=== PATIENT | female | born 1985 | race Two or more races ===

== ENCOUNTER 2020-03-24 20:45 | Emergency (ER) | payer MEDICARE, OTHER ==
[~2020-03-24] VITALS: Ht 157.5 cm; Wt 59.0 kg
[2020-03-24 21:27] LABS: BASOPHILS # (AUTO) 0.1 /CMM (0.0-0.2); BASOPHILS % (AUTO) 0.5 % (0.0-2.0); EOSINOPHILS % (AUTO) 0.4 % (0.0-6.0); HEMATOCRIT 37 % (39-51); HEMOGLOBIN 12.1 g/dL (13.5-17.5); LYMPHOCYTES # (AUTO) 1.7 /CMM (0.8-4.8); LYMPHOCYTES % (AUTO) 16.1 % (20.0-44.0); MEAN CORPUSCULAR HGB CONC 33 g/dl (31.0-36.0); MEAN CORPUSCULAR VOLUME 87 fL (80-96); MONOCYTES # (AUTO) 0.5 /CMM (0.1-1.30); MONOCYTES % (AUTO) 4.5 % (2.0-12.0); NEUTROPHILS # (AUTO) 8.4 /CMM (1.8-8.9); NEUTROPHILS % (AUTO) 78.5 % (43.0-81.0); PLATELET COUNT (AUTO) 241 /CMM (150-450); RED BLOOD CELL COUNT(AUTO) 4.25 MIL/uL (4.5-6.0); WHITE BLOOD COUNT (AUTO) 10.7 K/uL (4.3-11.0)
--- NOTE | 2020-03-24 21:27 | NUR ---
BIBRA AND [employer] FOR SI. PT'S DADD CALLED 911 FOR SMOKING FENTANYL. PT REPORTED SHE'S USING FENTANYL FOR "RELIEF" AND SI. PT CURRENTLY A, OX4. BREATHING EVENLY. NO DISTRESS NOTED. PT WAS PLACED IN BED 13. SI PRECAUTION IN PLACE AND PT REMAINED UNDER CLOSE SUPERVISION OF A SITTER. WILL CONT TO MONITOR
[2020-03-24 21:34] LABS: CARBON DIOXIDE 28 mmol/L (21-32); CHLORIDE 103 mmol/L (98-107); CREATININE 0.9 mg/dL (0.6-1.3); GLUCOSE 100 mg/dL (74-106); POTASSIUM 3.7 mmol/L (3.5-5.1); SODIUM SERUM 137 mmol/L (136-145); UREA NITROGEN, BLOOD 10 mg/dL (7-18)
[2020-03-24 21:40] LABS: ALANINE AMINOTRANSFERASE 19 U/L (12-78); ALBUMIN 3.8 g/dL (3.4-5.0); ALCOHOL, BLOOD < 3 mg/dL (0-0); ALKALINE PHOSPHATASE 43 U/L (46-116); ASPARTATE AMINOTRANSFERASE 16 U/L (15-37); BILIRUBIN,DIRECT 0.2 mg/dL (0.0-0.2); BILIRUBIN,TOTAL 0.6 mg/dL (0.2-1.0)
[2020-03-24 21:42] LABS: ACETAMINOPHEN < 10 ug/ml (10-30); SALICYLATE < 2.8 mg/dL (2.8-20.0)
[2020-03-24 21:55] LABS: APPEARANCE,URINE Clear (CLEAR); BILIRUBIN,URINE Negative (NEGATIVE); BLOOD, URINE Negative Ery/uL (NEGATIVE); COLOR,URINE Yellow (YELLOW); KETONES,URINE 40 (NEGATIVE); LEUKOCYTE ESTERASE ,URINE Small (NEGATIVE); NITRITE, URINE Negative (NEGATIVE); PROTEIN,URINE Negative (NEGATIVE); UGLUCOSE Negative (NEGATIVE); UROBILINOGEN,URINE 0.2 EU/dL (0.2)
[2020-03-24 22:05] LABS: BACTERIA,URINE 1+ /HPF (None Seen); RBC,URINE NONE SEEN /HPF (0-2); SQUAMOUS EPITHELIAL CELL,UR Few /HPF (None Seen)
[2020-03-24] MEDS ORDERED: CEPHALEXIN MONOHYDRATE 500 MG CAPSULE PO ONE ×2 (23:00→23:50)
--- NOTE | 2020-03-24 23:47 | NUR ---
ART FROM CRISIS TEAM AT THE BED SIDE
[2020-03-25 00:37] VITALS: BP 110/80
== END 2020-03-25 00:37 | disposition home or self-care (01) ==
LOC: ER 20:49 → EDSEX 20:49 → ER 03-25 00:37
DX: R45.851 Suicidal ideations (principal); F11.10 Opioid abuse, uncomplicated; N39.0 Urinary tract infection, site not specified; F32.9 Major depressive disorder, single episode, unspecified; F41.9 Anxiety disorder, unspecified; E03.9 Hypothyroidism, unspecified
CPT/HCPCS: 36415; 80048; 80076; 80305; 80307; 80329; 81001; 84703; 85025; 87086; 99285; G0480; 81000-TC

== ENCOUNTER 2021-06-07 22:31 | Inpatient (IN) | payer MEDICARE, OTHER ==
[~2021-06-07] VITALS: Ht 157.5 cm; Wt 71.9 kg
--- NOTE | 2021-06-07 22:40 | NUR ---
PT BIBRA 102 FROM HER APARTMENT FOR POSSIBLE OVERDOSE ON FENTANYL AND XANAX/ PLACED IN BED 9 ON CARDAC MONITOR AND PULSE OX. ER MD AT BEDSIDE FOR EVAL. AWATING ORDERS.
[2021-06-07] MEDS ORDERED: NALOXONE PREFILLED SYRINGE 2 MG/2 ML SYRINGE ONE ×2 (22:47→23:38)
[2021-06-07] MEDS ORDERED: IV NS 0.9% 1,000 ML BAG IV ONE (23:00)
[2021-06-07] MEDS ORDERED: NALOXONE PREFILLED SYRINGE 2 MG/2 ML SYRINGE IV ONE (23:00)
--- NOTE | 2021-06-07 23:00 | NUR ---
NARCAN 2MG GIVEN PER MD ORDER. PT A&OX1 ABLE TO STATE WHAT SHE INGESTED.
--- NOTE | 2021-06-07 23:05 | NUR ---
URINE COLLECTED AND SENT TO LAB
--- NOTE | 2021-06-07 23:07 | NUR ---
SCHOOL ATTENDANCE SECRETARY @ BEDSIDE COLLECTING BLOOD.
[2021-06-07 23:14] LABS: BILIRUBIN,URINE SMALL (NEGATIVE); COLOR,URINE DARK YELLOW (YELLOW); LEUKOCYTE ESTERASE ,URINE Negative (NEGATIVE); NITRITE, URINE Negative (NEGATIVE); PH,URINE 5.5 (5.0-8.0); PROTEIN,URINE >=300 mg/dl (NEGATIVE); UGLUCOSE Negative (NEGATIVE); UROBILINOGEN,URINE 0.2 EU/dL (0.2)
[2021-06-07 23:17] LABS: BASOPHILS % (AUTO) 0.2 % (0.0-2.0); EOSINOPHILS % (AUTO) 0.2 % (0.0-6.0); HEMATOCRIT 58 % (33-45); HEMOGLOBIN 18.7 g/dL (11.5-14.8); LYMPHOCYTES # (AUTO) 0.8 K/uL (0.8-4.8); LYMPHOCYTES % (AUTO) 4.2 % (20.0-44.0); MEAN CORPUSCULAR HGB CONC 33 g/dl (31.0-36.0); MEAN CORPUSCULAR VOLUME 86 fL (82-100); MONOCYTES # (AUTO) 0.5 K/uL (0.1-1.30); MONOCYTES % (AUTO) 2.8 % (2.0-12.0); NEUTROPHILS # (AUTO) 17.1 K/uL (1.8-8.9); NEUTROPHILS % (AUTO) 92.6 % (43.0-81.0); PLATELET COUNT (AUTO) 381 K/uL (150-450); RED BLOOD CELL COUNT(AUTO) 6.68 MIL/uL (4.0-5.2); WHITE BLOOD COUNT (AUTO) 18.5 K/uL (4.3-11.0)
--- NOTE | 2021-06-07 23:22 | NUR ---
covid swab done and sent to lab
[2021-06-07 23:28] LABS: ALKALINE PHOSPHATASE 110 U/L (46-116); BILIRUBIN,DIRECT 0.2 mg/dL (0.0-0.2); BILIRUBIN,TOTAL 0.7 mg/dL (0.2-1.0); CARBON DIOXIDE 18 mmol/L (21-32); CHLORIDE 94 mmol/L (98-107); CREATININE 3.9 mg/dL (0.6-1.3); GLUCOSE 150 mg/dL (74-106); SODIUM SERUM 132 mmol/L (136-145); TOTAL PROTEIN, SERUM 8.9 g/dL (6.4-8.2); UREA NITROGEN, BLOOD 42 mg/dL (7-18)
--- NOTE | 2021-06-07 23:30 | NUR ---
BS TAKEN: 142 MD NOTIFIED
[2021-06-07 23:33] LABS: ACETAMINOPHEN 0 ug/ml (10-30); ALCOHOL, BLOOD < 3 mg/dL (0-0)
[2021-06-07 23:35] LABS: POTASSIUM 6.8 mmol/L (3.5-5.1)
--- NOTE | 2021-06-07 23:35 | NUR ---
RECIEVED STAT LAB K+ 6.8 NOTIFIED
[2021-06-07] MEDS ORDERED: INSULIN REGULAR, HUMAN 100 UNIT/ML 10 ML VIAL ONE (23:45)
[2021-06-07] MEDS ORDERED: SODIUM BICARBONATE SYR 50 MEQ/50 ML DISP.SYRIN ONE (23:45)
[2021-06-07] MEDS ORDERED: CALCIUM CHLORIDE 1,000 MG/10 ML DISP.SYRIN ONE (23:45)
[2021-06-07] MEDS ORDERED: DEXTROSE 50%-WATER 50 ML DISP.SYRIN ONE (23:45)
[2021-06-07 23:49] LABS: BAND % (MANUAL) 5 % (0.0-5.0); LYMPHOCYTES % (MANUAL) 4 % (16-48); MONOCYTES % (MANUAL) 3 % (0-11.0); NEUTROPHILS % (MANUAL) 88 (42-76)
[2021-06-07] MEDS ORDERED: ALBUTEROL FS 2.5 MG/3 ML VIAL.NEB ONE (23:51)
[2021-06-08] VITALS (76 sets, daily range): BP systolic 73–163; BP diastolic 36–127
[2021-06-08] MEDS ORDERED: CALCIUM CHLORIDE 1,000 MG/10 ML DISP.SYRIN IV ONE
[2021-06-08] MEDS ORDERED: ALBUTEROL FS 2.5 MG/3 ML VIAL.NEB NEB ONE
[2021-06-08] MEDS ORDERED: SODIUM BICARBONATE SYR 50 MEQ/50 ML DISP.SYRIN IV ONE
[2021-06-08] MEDS ORDERED: DEXTROSE 50%-WATER 50 ML DISP.SYRIN IV ONE
[2021-06-08] MEDS ORDERED: NALOXONE PREFILLED SYRINGE 2 MG/2 ML SYRINGE IV ONE
--- NOTE | 2021-06-08 00:01 | NUR ---
RECTAL TEMP TAKEN 86.6 PER MD ORDER TO WARM PATIENT WITH WARM BLANKETS AND BEAR HUGGER
--- NOTE | 2021-06-08 00:15 | NUR ---
RT AND MD @ BEDSIDE GETTING ABG.
--- NOTE | 2021-06-08 00:18 | NUR ---
TEMP RECHECK 88.8 MD AWARE.
[2021-06-08 00:26] LABS: ABG BASE EXCESS -12.4 mmol/L; ABG OXYGEN SATURATION 98.9 % (92.0-98.5); ABG PCO2 41.4 mmHg (35.0-45.0); ABG PH 7.186 (7.350-7.450); ABG PO2 321.4 mmHg (75.0-100.0); AaDO2 25.9 mmHg; COHb 0.3 % (0.5-1.5); MetHb 0.6 % (0.0-1.5); SITE, ABG Left Radial
[2021-06-08] MEDS ORDERED: IV NS 0.9% 1,000 ML BAG IV ONE (00:30)
[2021-06-08] MEDS ORDERED: PROPOFOL 100 ML ONE (00:37)
--- NOTE | 2021-06-08 00:40 | NUR ---
RT notes Pt was orally intubated by ER . With 7.0 ETT secure at 23 cm at the lip line. ETT patent and secured. C02 detector color change noted, mist on tube is noted, equal chest rise noted. Pt placed on [facility] vent. on MD ordered settings AC mode rate of 16 tidal volume of 450 fio2 of 40 % PEEP of 5. Alarms are set and audible. Vent connected to red outlet. Ambubag at bedside. Will obtain ABG in 1 hour. Will continue to monitor patient. Addendum: 06/08/21 at 0113 by AFSANEH CUNNINGHAM RT Amended: Links added.
--- NOTE | 2021-06-08 00:40 | NUR ---
PT WAS INTUBATED MD AND RT AT BEDSIDE
[2021-06-08] MEDS ORDERED: ROCURONIUM BROMIDE 100 MG/10 ML VIAL IV ONE (01:00)
[2021-06-08] MEDS ORDERED: ETOMIDATE 2 MG/ML VIAL IV ONE ×2 (01:00→08:53)
[2021-06-08 01:06] LABS: ALANINE AMINOTRANSFERASE > 1000 U/L (12-78); ASPARTATE AMINOTRANSFERASE > 1000 U/L (15-37)
--- NOTE | 2021-06-08 01:29 | NUR ---
ICU 257
[2021-06-08] MEDS ORDERED: ACETAMINOPHEN 325 MG TABLET PO PRN (01:30)
[2021-06-08] MEDS ORDERED: ONDANSETRON HCL/PF 4 MG/2 ML VIAL IVP PRN (01:30)
[2021-06-08] MEDS ORDERED: IV NS 0.9% 1,000 ML IV PRN ×2 (01:30→01:45)
[2021-06-08 01:33] LABS: BACTERIA,URINE Few /HPF (None Seen); SQUAMOUS EPITHELIAL CELL,UR Few /HPF (None Seen); WBC,URINE 0-2 /HPF (0-3)
[2021-06-08] MEDS ORDERED: D5W IV ONE ×5 (02:00→12:00)
[2021-06-08] MEDS ORDERED: ACETYLCYSTEINE IV ONE ×5 (02:00→12:00)
[2021-06-08] MEDS ORDERED: Sodium Bicarbonate 50 MEQ in IV NS 0.9% 1,000 ML IV PRN (02:00)
--- NOTE | 2021-06-08 02:03 | NUR ---
REPORT GIVEN TO ANGELA IN ICU
[2021-06-08 02:04] LABS: ABG BASE EXCESS -13.1 mmol/L; ABG OXYGEN SATURATION 98.7 % (92.0-98.5); ABG PCO2 33.9 mmHg (35.0-45.0); ABG PO2 232.6 mmHg (75.0-100.0); AaDO2 21.1 mmHg; COHb 0.3 % (0.5-1.5); MetHb 0.7 % (0.0-1.5); O2Hb 97.7 % (94.0-97.0); SITE, ABG Left Radial
[2021-06-08 02:24] LABS: ALBUMIN 1.7 g/dL (3.4-5.0); ALKALINE PHOSPHATASE 55 U/L (46-116); BILIRUBIN,TOTAL 0.4 mg/dL (0.2-1.0); CARBON DIOXIDE 16 mmol/L (21-32); CHLORIDE 111 mmol/L (98-107); CREATININE 3.1 mg/dL (0.6-1.3); GLUCOSE 156 mg/dL (74-106); POTASSIUM 4.6 mmol/L (3.5-5.1); SODIUM SERUM 142 mmol/L (136-145); TOTAL PROTEIN, SERUM 4.1 g/dL (6.4-8.2); UREA NITROGEN, BLOOD 40 mg/dL (7-18)
[2021-06-08 02:28] LABS: CALCIUM, SERUM 5.2 mg/dL (8.5-10.1)
[2021-06-08] MEDS ORDERED: ZOSYN IVPB 3.375 G in IV D5W 50ml IV ONE (02:30)
[2021-06-08] MEDS ORDERED: VANCOMYCIN 1 GM in IV D5W 250ml IV ONE (02:30)
--- NOTE | 2021-06-08 02:39 | NUR ---
CRITICAL LABS: CALCIUM 5.2 LACTIC ACID 3.8
--- NOTE | 2021-06-08 02:55 | NUR ---
ICU NOTES Received patient from ED via ACLS protocol.Situated to bed and made comfortable.Patient admitted with DX: DRUG OVERDOSE.Received patient sedated and intubated and connected to vent by RT.Hooked to ekg monitor tech ST 104.Hypothermic 94.6 /rec.Jeanmarie Hugger applied.No acute respiratory distress noted. OGT patent and in placed.FC to gravity.Patient with multiple psoriasis all over the body. Initial admission assessment done.0300 Patient waking up reaching for ET Tube.Bilateral soft restraints applied.Continue to monitor.
[2021-06-08] MEDS ORDERED: Calcium Gluconate 1GM/10ML 4.65 MEQ in IV D5W 50 ML IV ONE ×3 (03:00→23:30)
--- NOTE | 2021-06-08 03:01 | NUR ---
PT WAS TRANSFERRED TO ICU UNDER ACLS
[2021-06-08 03:07] LABS: ALANINE AMINOTRANSFERASE > 1000 U/L (12-78); ASPARTATE AMINOTRANSFERASE > 1000 U/L (15-37)
--- NOTE | 2021-06-08 03:30 | NUR ---
ICU NOTES Patient needs Acetadote bolus and maintenance dose.Nurse Electrical Foreman notified to call Pharmacy erp implementation consultant to mix this medications.
[2021-06-08] MEDS ORDERED: Calcium Gluconate 0.465 MEQ/ML VIAL IV ONE ×3 (04:10→23:30)
[2021-06-08] MEDS ORDERED: VANCOMYCIN 1 GM VIAL ONE (04:11)
[2021-06-08] MEDS ORDERED: PIPERACILLIN /TAZOBACTAM 3.375 G VIAL IV ONE (04:12)
[2021-06-08] MEDS ORDERED: SODIUM BICARBONATE SYR 50 MEQ/50 ML DISP.SYRIN ONE (04:13)
[2021-06-08] MEDS: IV NS 0.9% 250 ML IV PRN (04:36)
[2021-06-08] MEDS: PROPOFOL 100 ML IV PRN ×3 (04:44→20:30)
--- NOTE | 2021-06-08 05:00 | NUR ---
ICU NOTES Lab called for abnormal lab result Lactic acid 4.1 Briana David DNP notified with orders received and carried out.
[2021-06-08 05:08] LABS: ALKALINE PHOSPHATASE 87 U/L (46-116); BILIRUBIN,TOTAL 0.8 mg/dL (0.2-1.0); CARBON DIOXIDE 21 mmol/L (21-32); CHLORIDE 106 mmol/L (98-107); CREATININE 3.4 mg/dL (0.6-1.3); GLUCOSE 131 mg/dL (74-106); POTASSIUM 4.9 mmol/L (3.5-5.1); SODIUM SERUM 140 mmol/L (136-145); TOTAL PROTEIN, SERUM 6.1 g/dL (6.4-8.2); UREA NITROGEN, BLOOD 40 mg/dL (7-18)
[2021-06-08] MEDS ORDERED: MISCELLANEOUS MED 1 EA EA XX ONE (05:30)
[2021-06-08] MEDS ORDERED: IV NS 0.9% 500 ML IV ONE (05:30)
[2021-06-08 05:38] LABS: ALANINE AMINOTRANSFERASE > 1000 U/L (12-78); ASPARTATE AMINOTRANSFERASE > 1000 U/L (15-37)
[2021-06-08 05:42] LABS: ALBUMIN 2.7 g/dL (3.4-5.0)
--- NOTE | 2021-06-08 07:30 | NUR ---
ICU NOTES Patient remains sedated in no acute distress.AM care done.All due medications administered. Report given to day shift for erich.
--- NOTE | 2021-06-08 08:00 | NUR ---
rn notes RECEIVED PATIENT IN ETT /VENT SETTING FIO2-40%, PEEP-5, AC-16. PATIENT SEDATED ON DIPRIVAN 25MCG/KG/HR.PATIENT HAS OGT CLAMPED. MOHAMUD DRAINING POOR OUTPUT. NO ACUT RESPIRATORY DISTRESS, PATIENT BOTH EYES HAS LATERAL BULGING AYES.Acute respiratory failure:2/2 drug OD, 2)Severe metabolic acidosis:likely secondary to OD, monitor for improvement with IVF. 3)Toxic and metabolic encephalopathy:monitor for improvement with OD and for mental status changes. 4)Leukocytosis:possibly 2/2 aspiration PNA with radiographic lag. monitor for improvement with management of below. 5)PNA:possible aspiration, cont. empiric abx. and f/u sputum Cx's as well to aid in abx. guidance. possible pneumonitis as well. 6)Lactic acidosis:multifactorial, monitor for improvement with IVF. 7)Drug OD:monitor for improvement with IVF and meds as below, tox pos. for benzo and cannabinoids, possible other that does not present on tox based on labs. monitor for withdrawals and need for meds to aid in control. 8)Severe hyperkalemia:likely hemoconcentrated, resolved, cont. monitoring. 9)Hyponatremia:likely hemoconcentrated, resolved, cont. monitoring. 10)Severe transaminitis:possible acute hepatic ischemia vs. secondary to drug OD, monitor for fulminant liver failure. started on mucomyst per poison control, cont. course per recs. cont. monitoring LFT's. 11)Hypocalcemia:partly secondary to hypoalbuminemia however also likely secondary to above. monitor for improvement with management of above. 12)MIGUELITO:likely ATN, monitor for improvement with IVF and monitor for diuretic phase of MIGUELITO, dose meds appropriately. avoid nonessential nephrotoxic meds. cont. nephro management/recs. 13)Bipolar disorder:with suicidal attempt and ideation. cont. home meds and f/u psych consult to aid in management. INFUSING MUCOMYST 128ML/HR. AND NA WITH 2AMPS OF BICARB 200 ML/JHR ON LRFT ACCAREA INTACT. RECHECKED RESTRAIN FOR CIRCULATION, WILL FOLLOW UP , SEEN HOSPITALIST Dr SALEEM, AND Dr ARCINIEGA. WILL FOLLOW UP.
[2021-06-08 08:05] LABS: ABG BASE EXCESS -9.8 mmol/L; ABG OXYGEN SATURATION 97.6 % (92.0-98.5); ABG PCO2 33.8 mmHg (35.0-45.0); ABG PH 7.286 (7.350-7.450); AaDO2 133.3 mmHg; MetHb 0.3 % (0.0-1.5); O2Hb 97.3 % (94.0-97.0); SITE, ABG Right Radial
--- NOTE | 2021-06-08 08:35 | NUR ---
RN NOTES GET ORDER FROM DR ARCINIEGA STOP SEDATION FOR WEANING FROM VENT. ORDER TAKEN AND CARRIED OUT.
[2021-06-08 08:39] LABS: ALBUMIN 2.8 g/dL (3.4-5.0); ALKALINE PHOSPHATASE 90 U/L (46-116); BILIRUBIN,DIRECT 0.3 mg/dL (0.0-0.2); BILIRUBIN,TOTAL 0.8 mg/dL (0.2-1.0)
[2021-06-08] MEDS ORDERED: ROCURONIUM BROMIDE 50 MG/5 ML IV ONE (08:53)
[2021-06-08 09:30] LABS: TOTAL PROTEIN, SERUM 6.3 g/dL (6.4-8.2)
[2021-06-08] MEDS: Sodium Bicarbonate 100 MEQ in IV D5W 1,000 ML IV PRN ×2 (09:50→17:06)
[2021-06-08] MEDS: HEPARIN SODIUM, PORCINE 5000 UNITS/1 ML VIAL SQ SCH ×2 (09:50→21:24)
--- NOTE | 2021-06-08 09:55 | NUR ---
RT PER MD ORDER VENT WEANING INITIALED. ALARMS CHECKED + AUDIBLE. AMBU BAG AT HOB Addendum: 06/08/21 at 0955 by VIKAS ANN RT Amended: Links added.
--- NOTE | 2021-06-08 10:15 | NUR ---
RN NOTES PER ABG RESULT DR ARCINIEGA ORDERED RESTART SEDATION BACK, AND GET TO ORDER D5W WITH TWO AMPS OF BICARB 150ML/HR, STAT ENVIRONMENTAL ENGINEER SCIENTIST ORDER. ORDER TAKEN AND CARRIED OUT.
[2021-06-08 10:42] LABS: ALBUMIN 1.9 g/dL (3.4-5.0); BILIRUBIN,DIRECT 0.2 mg/dL (0.0-0.2); BILIRUBIN,TOTAL 0.5 mg/dL (0.2-1.0); CREATININE 3.7 mg/dL (0.6-1.3); POTASSIUM 5.5 mmol/L (3.5-5.1)
--- NOTE | 2021-06-08 11:00 | NUR ---
RN NOTES SEEN PATIENT VIA PRINTMAKER WILL FOLLOW UP.
[2021-06-08 11:09] LABS: ALANINE AMINOTRANSFERASE > 1000 U/L (12-78); ASPARTATE AMINOTRANSFERASE > 1000 U/L (15-37)
[2021-06-08] MEDS: PIPERACILLIN /TAZOBACTAM 3.375 G in IV D5W 100 ML IV SCH ×2 (11:37→20:13)
[2021-06-08] MEDS ORDERED: SODIUM POLYSTYRENE SULFONATE 15 G/60 ML BOTTLE GT ONE (13:30)
[2021-06-08] MEDS ORDERED: INSULIN REGULAR, HUMAN 100 UNIT/ML 10 ML VIAL IV ONE ×2 (13:30)
[2021-06-08] MEDS ORDERED: DEXTROSE 50%-WATER 50 ML DISP.SYRIN IVP ONE (13:30)
--- NOTE | 2021-06-08 14:00 | NUR ---
rn notes get call from poison control personnel name Peter, will follow up daily patient condition, given lab values, and Mucomyst infusion rate.
--- NOTE | 2021-06-08 14:47 | NUR ---
JAYCEE NOTES BS-176MG/DL, KCL-5.5 ADMINISTERED KAYEXALATE, DEXTROSE, AND INSULIN 10U PRESCRIBED VIA OGT. PATIENT SEDATED DIPRIVAN 30MCG/KG/HR, MOTHER NEXT TO THE BED. Addendum: 06/08/21 at 1503 by CONNER FOSS RN ABOVE NOTES KAYEXALATE ONLY ADMINISTERED VIA OGT.
--- NOTE | 2021-06-08 16:26 | NUR ---
SS consult requested for Fentanyl OD. SS to follow up at a later time.
--- NOTE | 2021-06-08 17:55 | NUR ---
RN NOTES GET PERMISSION FROM PATIENTS MOM NAME MICHELLE PICC LINE INSERTION CONSENT FORM, CO-SIGN CO- WORKER JAYCEE WILSON.
--- NOTE | 2021-06-08 18:06 | NUR ---
RN NOTEDS PATIENT GET PICC LINE INSERTION ON LEFT UA, CHEST X-RAY ORDERED.
--- NOTE | 2021-06-08 18:30 | NUR ---
rn notes pm care done, suction, mouth care. due medication administered. patient sedated with Diprivan 30mcg/kg/hr, d5w with two bicarb @150ml/hr, and Mucomyst 64.40ml/hr on left picc line intact. patient has poor Spencer output 75 ml total 12hr. notified lactic acid level 3.3 Dr Lea , and no new order continue infusion. Restrain rechecked for circulation q2 hr. assist turn and reposition q 2 hr. endorsed oncoming nurse follow plan of care.
--- NOTE | 2021-06-08 19:45 | NUR ---
ICU/BODY BUILDER RECIEVED REPORT FROM DAY SHIFT NURSE. SEE FLOWSHEET FOR ASSESSMENT, THERE ARE MANY SKIN ISSUES THAT ARE ADDRESSED ON THE FLOWSHEET, ALONG WITH INTERVENTIONS TO EACH. THERE ARE IV'S WHICH ARE ADDRESSED ON THE IV SPREAD SHEET. PT WAS TURNED AND REPOSITIONED FOR COMFORT AND CARE. WILL CONTINUE TO MONITOR THIS PT. NO ACUTE DISTRESS SEEN AT THIS TIME.
--- NOTE | 2021-06-08 20:10 | NUR ---
RECEIVED PT INTUBATED ON [facility] VENT. 7.0 ETT SECURED AT 23CM AT THE LIP. NO RESPIRATORY DISTRESS. SX'D SMALL AMT OF THIN WHITE SECRETIONS. VENT ALARMS SET AND AUDIBLE. AMBU BAG AT BEDSIDE. Addendum: 06/08/21 at 2011 by AGUILA CRUZ RT Amended: Links added.
--- NOTE | 2021-06-08 21:44 | NUR ---
ICU/MOVABLE BULKHEAD INSTALLER LOIDA FROM POISON CONTROL, CALLED ASKED ABOUT CURRENT LABS, VITAL SIGNS, ASKED ABOUT MORNING LABS. THIS WAS GIVEN TO POISON CONTROL. SAID THEY WILL CALL BACK IN THE MORNING POST AM LABS.
--- NOTE | 2021-06-08 22:00 | NUR ---
ICU/RECORD PRODUCER SEA CAME TO SEE PT AND ORDERS WERE RECIEVED. CHARGE NURSE AWARE.
--- NOTE | 2021-06-08 23:00 | NUR ---
ICU/STOPE MINER PT WAS GIVEN ORAL CARE ALONG WITH PM CARE. PT REMAINS ON CURRENT VENT SETTINGS WITH SATURATION AT 99-100%. PT WAS TURNED AND REPOSITIONED FOR COMFORT AND CARE. WILL CONTINUE TO MONITOR THIS PT. NO ACUTE DISTRESS SEEN AT THIS TIME.
[2021-06-08] MEDS ORDERED: SODIUM POLYSTYRENE SULFONATE 15 G/60 ML BOTTLE NG ONE (23:30)
[2021-06-08] MEDS ORDERED: SODIUM POLYSTYRENE SULFONATE 15 G/60 ML BOTTLE ONE (23:31)
[2021-06-09] VITALS (88 sets, daily range): BP systolic 114–172; BP diastolic 62–116
[2021-06-09] MEDS: Sodium Bicarbonate 100 MEQ in IV D5W 1,000 ML IV PRN (00:49)
--- NOTE | 2021-06-09 01:41 | NUR ---
FiO2 titrated to 35%, RN notified. O2 sat 100%.
--- NOTE | 2021-06-09 01:43 | NUR ---
ICU/JEWELRY SALESPERSON FIO2 WAS DECREASED DOWN TO 35% FROM 40%. WILL CONTINUE TO THIS PT'S SATURATION.
--- NOTE | 2021-06-09 03:00 | NUR ---
ICU/LAUNCH CHECK OUT PT WAS GIVEN ORAL CARE ALONG WITH AM CARE. PT REMAINS ON CURRENT VENT SETTINGS WITH SATURATION AT 99-100%. ALSO AT THIS TIME DRESSING CHANGES WERE DONE. PT WAS TURNED AND REPOSITIONED FOR COMFORT AND CARE. WILL CONTINUE TO MONITOR THIS PT. NO ACUTE DISTRESS SEEN AT THIS TIME.
--- NOTE | 2021-06-09 03:30 | NUR ---
ICU/SPEECH THERAPY TEACHER PT HAD POSITIVE RESULTS WITH THE KAYEXALATE. PT'S POTASSIUM WAS 5.5. AWAIT FOR AM LABS
[2021-06-09] MEDS: PIPERACILLIN /TAZOBACTAM 3.375 G in IV D5W 100 ML IV SCH (04:29)
[2021-06-09] MEDS: IV NS 0.9% 250 ML IV PRN (04:30)
[2021-06-09 04:40] LABS: BASOPHILS % (AUTO) 0.1 % (0.0-2.0); HEMATOCRIT 37 % (33-45); HEMOGLOBIN 12.4 g/dL (11.5-14.8); LYMPHOCYTES # (AUTO) 1.3 K/uL (0.8-4.8); LYMPHOCYTES % (AUTO) 8.1 % (20.0-44.0); MEAN CORPUSCULAR HGB CONC 33 g/dl (31.0-36.0); MEAN CORPUSCULAR VOLUME 84 fL (82-100); MONOCYTES # (AUTO) 0.8 K/uL (0.1-1.30); MONOCYTES % (AUTO) 5.1 % (2.0-12.0); NEUTROPHILS # (AUTO) 13.5 K/uL (1.8-8.9); NEUTROPHILS % (AUTO) 86.7 % (43.0-81.0); PLATELET COUNT (AUTO) 170 K/uL (150-450); WHITE BLOOD COUNT (AUTO) 15.5 K/uL (4.3-11.0)
--- NOTE | 2021-06-09 05:15 | NUR ---
ICU/OBJECTIVE C DEVELOPER AM LABS ALONG WITH CHEST XRAY DONE. AWAIT FOR ANY ABNORMAL RESULTS.
[2021-06-09 05:16] LABS: ALBUMIN 1.5 g/dL (3.4-5.0); BILIRUBIN,DIRECT 0.2 mg/dL (0.0-0.2); BILIRUBIN,TOTAL 0.5 mg/dL (0.2-1.0); CALCIUM, SERUM 6.1 mg/dL (8.5-10.1); CREATININE 4.7 mg/dL (0.6-1.3); MAGNESIUM 1.9 mg/dL (1.8-2.4); PHOSPHORUS 6.3 mg/dL (2.5-4.9); POTASSIUM 3.4 mmol/L (3.5-5.1); TOTAL PROTEIN, SERUM 4.2 g/dL (6.4-8.2)
[2021-06-09] MEDS: VANCOMYCIN 0.75 GM in IV D5W 250 ML IV SCH (05:55)
[2021-06-09] MEDS: PROPOFOL 100 ML IV PRN ×2 (05:56→18:09)
--- NOTE | 2021-06-09 06:50 | NUR ---
ICU/LATEX THREAD MACHINE OPERATOR POISON CONTROL CALLED ABOUT MORNING LABS AND ASKED TO CONTINUE WITH MUCOMYST DRIP. THEY SAID TO HAVE AST/ALT DILATE THE LABS. ALSO SAID TO CONTINUE THE DRIP FOR 16HRS. NOTIFIED SEA FOR THESE ORDERS. WALLPAPER CONSULTANT NURSE AWARE.
[2021-06-09] MEDS ORDERED: D5W IV ONE (07:00)
[2021-06-09] MEDS ORDERED: ACETYLCYSTEINE IV ONE (07:00)
[2021-06-09] MEDS: Sodium Bicarbonate 100 MEQ in IV D5W 1,000 ML IV SCH ×4 (07:27→23:45)
--- NOTE | 2021-06-09 07:54 | NUR ---
rn notes received patient still ETT /vent setting FIO2-35%, peep-5, no acute respiratory distress. patient sedated with Diprivan 20mcg/kg/hr. infusing D5W with bicarb two amps @200ml/hr, Mucomyst 64.4 , and Zosyn 25 mg/ml extended dose. No urine output, keep hob elevated, assist turn and reposition q 2 hr. will follow up.
[2021-06-09] MEDS: HEPARIN SODIUM, PORCINE 5000 UNITS/1 ML VIAL SQ SCH ×2 (08:21→21:59)
--- NOTE | 2021-06-09 08:28 | NUR ---
RN NOTES SEEN PATIENT VIA HOSPITALIST WILL FOLLOW UP PLAN OF CARE.
--- NOTE | 2021-06-09 08:30 | NUR ---
RN NOTES DR SALEEM GIVE A CALL PATIENTS SISTER ABOUT PATIENT CONDITION.
[2021-06-09 09:08] LABS: ABG BASE EXCESS 2.2 mmol/L; ABG PCO2 34.5 mmHg (35.0-45.0); ABG PH 7.484 (7.350-7.450); ABG PO2 180.4 mmHg (75.0-100.0); COHb 0.3 % (0.5-1.5); MetHb 0.3 % (0.0-1.5); O2Hb 98.4 % (94.0-97.0); PEEP,BG 5 cm H2O; SITE, ABG Right Radial; VT, ABG 450 mL
--- NOTE | 2021-06-09 09:13 | NUR ---
rn notes after ABG result get to order from Dr Conn stop sedation for weaning from vent. order taken and carried out.
[2021-06-09] MEDS ORDERED: POTASSIUM CL. PREMIX PERIPHER. 50 ML IV SCH (10:00)
--- NOTE | 2021-06-09 10:18 | NUR ---
RN NOTES GET CALL FROM LAB CREATININE LEVEL IS 600.0, NOTIFIED HOSPITALIST Dr SALEEM, AND Dr ARREOLA.
[2021-06-09] MEDS: LABETALOL 20 MG/4 ML VIAL IV PRN ×3 (10:37→22:37)
--- NOTE | 2021-06-09 10:37 | NUR ---
RN NOTES ADMINISTERED LABETALOL 10ML IV PUSH FOR BP157.96, P-110.
--- NOTE | 2021-06-09 10:45 | NUR ---
rn notes patient on SINV mode., breathing stable, assessing during weaning, patient awake able to respond , calm, no anxious.
[2021-06-09] MEDS: PIPERACILLIN /TAZOBACTAM 2.25 G in IV D5W 50 ML IV SCH ×3 (12:02→23:49)
--- NOTE | 2021-06-09 14:00 | NUR ---
RN NOTES PATIENT STILL ON SIMV MODE BREATHING SELF, PER DR ARCINIEGA KEEP SEDATION OFF, ABG DONE. ALSO SEEN HISTORICAL ARCHEOLOGIST DR ARREOLA Initiate nutrition as soon as medically feasible, Labs improve, Follow up on wound consult, RD follow up 06/11/2021
[2021-06-09 14:46] LABS: ABG OXYGEN SATURATION 98.9 % (92.0-98.5); ABG PH 7.539 (7.350-7.450); ABG PO2 156.5 mmHg (75.0-100.0); AaDO2 58.2 mmHg; COHb 0.3 % (0.5-1.5); MetHb 0.2 % (0.0-1.5); O2Hb 98.4 % (94.0-97.0); PEEP,BG 5 cm H2O; SITE, ABG Left Radial; VENT MODE, BG CPAP PS 12
--- NOTE | 2021-06-09 15:55 | NUR ---
RN NOTES GET FOLLOW UP CALL FROM POISON CONTROL PERSONNEL NAME DUDLEY AND HAZEL REPEAT LIVER FUNCTION TEST NOW AND REPEAT 2100 WELL AFTER MUCOMYST INFUSION FINISHED. WILL FOLLOW UP.
--- NOTE | 2021-06-09 16:28 | NUR ---
rn notes administered labetalol 10mg/ml iv push for bp 155/100, p-93.
--- NOTE | 2021-06-09 18:14 | NUR ---
rn notes RESTART DIPRIVAN 5 MCG/KG/HR PER PROTOCOL DRIP AGAIN BECAUSE PATIENT WAS AGITATED, ALSO INFUSING MUCOMYST 64.4 ML/HR, D5W WITH TWO AMPS OF BICARB @200ML/HR. PM CARE DONE, SUCTION, MOUTH CARE. MOTHER NEXT TO THE BED. URINE OUTPUT WAS 75 ML TOTAL SHIFT. ASSIST TURN AND REPOSTION Q 2 HR. RESTRAIN RECHECKED FOR CIRCULATION. ENDORSED ONCOMING NURSE FOLLOW PLAN OF CARE.
--- NOTE | 2021-06-09 19:40 | NUR ---
ICU/DIETARY AIDE TEACHER RECIEVED REPORT FROM DAY SHIFT NURSE. SEE FLOWSHEET FOR ASSESSMENT, THERE ARE MANY SKIN ISSUES THAT ARE ADDRESSED ON THE FLOWSHEET, ALONG WITH INTERVENTIONS TO EACH. THERE ARE IV'S WHICH ARE ADDRESSED ON THE IV SPREAD SHEET. PT WAS TURNED AND REPOSITIONED FOR COMFORT AND CARE. WILL CONTINUE TO MONITOR THIS PT. NO ACUTE DISTRESS SEEN AT THIS TIME.
--- NOTE | 2021-06-09 20:30 | NUR ---
ICU/INDUSTRIAL PRODUCTION MANAGER DURING ASSESSMENT OF PT, FOUND THAT PT HAD A LARGE LACERATION 4CM LONG. SLIGHT PUFFY WITH REDNESS SEEN. PHOTO DOCUMENTATION WAS DONE ALSO LET TISSUE TECHNOLOGIST MD KNOW ABOUT THIS.
--- NOTE | 2021-06-09 21:42 | NUR ---
RECEIVED PT ON CPAP MODE NO RESP DISTRESS. PT TOLERATING VENT SETTINGS. CONTINUE TO MONITOR. Addendum: 06/09/21 at 2144 by AGUILA CRUZ RT Amended: Links added.
--- NOTE | 2021-06-09 23:50 | NUR ---
ICU/SHELL COREMAKER BICARB DRIP WAS HUNG UP LATE DUE TO THE FACT THAT THERE WAS VOLUME IN THE BAG. THIS WAS USED THEN THE NEXT BAG WAS HUNG UP NEXT.
[2021-06-10] VITALS (46 sets, daily range): BP systolic 123–160; BP diastolic 59–99
--- NOTE | 2021-06-10 00:30 | NUR ---
ICU/ENROLLMENT MANAGEMENT MANAGER LAB CALLED ABOUT THE CMP DRAWN @6700, THERE WAS A POWER OUTAGE WHICH CAUSED THE LAB EQUIPMENT TO GO DOWN. THIS THEN IN TURN CAUSED THE LABS NEEDED TO TURN OFF MUCAMYST DRIP TO BE TURNED OFF. WILL CONTINUE TO MONITOR THIS PT.
--- NOTE | 2021-06-10 02:39 | NUR ---
ICU/REGIONAL GUIDE LAB CALLED ABOUT THE CMP DRAWN @1960, THERE WAS A POWER OUTAGE WHICH CAUSED THE LAB EQUIPMENT TO GO DOWN. THIS THEN IN TURN CAUSED THE LABS NEEDED TO TURN OFF MUCAMYST DRIP TO BE TURNED OFF. WILL CONTINUE TO MONITOR THIS PT.
[2021-06-10 03:25] LABS: BILIRUBIN,DIRECT 0.3 mg/dL (0.0-0.2); BILIRUBIN,TOTAL 0.6 mg/dL (0.2-1.0)
[2021-06-10 03:28] LABS: ALBUMIN 1.3 g/dL (3.4-5.0); TOTAL PROTEIN, SERUM 3.7 g/dL (6.4-8.2)
[2021-06-10] MEDS: PROPOFOL 100 ML IV PRN (03:47)
--- NOTE | 2021-06-10 05:10 | NUR ---
ICU/SURGICAL CODER VAN DRIVER MD OSEI CALLED ABOUT THE RESTARTING OF MUCOMYST DRIP. AST AND ALT HAVE INCREASED NOT DECREASED. THE DRIP NEEDS TO BE RESTARTED PER POISON CONTROL THEM. CALL PLACED TO VAN DRIVER TO ORDER THIS.
[2021-06-10] MEDS: PIPERACILLIN /TAZOBACTAM 2.25 G in IV D5W 50 ML IV SCH ×4 (05:11→23:59)
[2021-06-10] MEDS: Sodium Bicarbonate 100 MEQ in IV D5W 1,000 ML IV SCH ×2 (05:12→08:47)
[2021-06-10 05:13] LABS: CALCIUM, SERUM 5.1 mg/dL (8.5-10.1)
[2021-06-10 05:38] LABS: BILIRUBIN,DIRECT 0.3 mg/dL (0.0-0.2); BILIRUBIN,TOTAL 0.6 mg/dL (0.2-1.0); CREATININE 5.8 mg/dL (0.6-1.3); TOTAL PROTEIN, SERUM 3.7 g/dL (6.4-8.2)
[2021-06-10 05:44] LABS: POTASSIUM 2.8 mmol/L (3.5-5.1)
--- NOTE | 2021-06-10 05:44 | NUR ---
ICU/LOAD PLANNER PT BECAME AGITATED TRIED TO PULL THE ETT TUBE HAD TO INCREASE THE SEDATION BY GATE SUPERVISOR NURSE. WILL MONITOR THIS PT.
[2021-06-10 05:47] LABS: ALBUMIN 1.3 g/dL (3.4-5.0); CALCIUM, SERUM 5.1 mg/dL (8.5-10.1)
[2021-06-10] MEDS: VANCOMYCIN 0.75 GM in IV D5W 250 ML IV SCH (06:00)
--- NOTE | 2021-06-10 06:08 | NUR ---
ICU/SOLUTION DESIGN AND ANALYSIS MANAGER VANCO LEVEL IS 30. VANCO WASN'T GIVEN
--- NOTE | 2021-06-10 06:09 | NUR ---
ICU/INSURANCE COMPLIANCE ANALYST ORDER WAS RECIEVED TO RESTART MUCOMYST, WAIT FOR PAHRMACY TO START THIS.
[2021-06-10] MEDS ORDERED: Calcium Gluconate 1GM/10ML 9.3 MEQ in IV D5W 250 ML IV ONE (06:30)
[2021-06-10] MEDS ORDERED: DEXTROSE 50%-WATER 50 ML DISP.SYRIN IV PRN (06:30)
[2021-06-10] MEDS ORDERED: D5W IV ONE (07:00)
[2021-06-10] MEDS ORDERED: ACETYLCYSTEINE IV ONE (07:00)
--- NOTE | 2021-06-10 07:10 | NUR ---
ICU/POULTRY SCALDER MORNING LABS JUST CAME IN ALONG WITH THE 2300 LABS FROM LAST NIGHT. CALLS WERE PLACED TO FOLLOW UP WITH THE CRITICAL, HOWEVER MASTER SHEET CLERK HASN'T CALLED BACK. DAY NURSE ELEONORA WAS NOTIFED ABOUT THE CRITICAL AND WILL FOLLOW UP WITH THE MD.
--- NOTE | 2021-06-10 07:20 | NUR ---
ICU/MALT LIQUORS SALES SUPERVISOR SEEN ORDERS PLACED BY THE NIGHT NAIL TECH MD, DAY NURSE MADE AWARE OF THESE.
--- NOTE | 2021-06-10 07:30 | NUR ---
OPENING NOTE: REPORT RECEIVED FROM SAVANAH TAYLOR. PT INTUBATED, LIGHTLY SEDATED AT THIS TIME. PT AGITATED, PULLING AT RESTRAINTS ATTEMPTING TO PULL ETT OUT. SEDATION INCREASED TO CALM PATIENT. PT IS CURRENTLY ON CPAP MODE ON THE VENT SO SEDATION TO BE KEPT TO A MINIMAL. NO URINE OUTPUT AT THIS TIME, NEPHROLOGY AWARE. BICARB GTT INFUSING PER MD ORDERS. PT CHECKED ON HOURLY AND PRN BY NURSING STAFF.
--- NOTE | 2021-06-10 07:49 | NUR ---
WOUND CARE CONSULT: UNABLE TO TURN PT FOR SKIN ASSESSMENT AT THIS TIME DUE TO PT BEING WEANED PER RESPIRATORY. REVIEWED CHART, NURSING DOCUMENTATION AND PHOTOS WHICH INDICATE MULTIPLE AREAS OF SKIN DISCOLORATION, CLOSED SCALP LACERATION AND SACRAL DEEP TISSUE INJURY IN EVOLUTION, ALL PRESENT ON ADMISSION. RECOMMENDATIONS MADE FOR SKIN PROTECTION. DISCUSSED WITH NURSING STAFF. MD IN AGREEMENT WITH PLAN OF CARE.
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
[2021-06-10 08:33] LABS: ABG BASE EXCESS 7.6 mmol/L; ABG OXYGEN SATURATION 98.9 % (92.0-98.5); ABG PCO2 34.1 mmHg (35.0-45.0); ABG PH 7.564 (7.350-7.450); ABG PO2 188.5 mmHg (75.0-100.0); AaDO2 21.4 mmHg; COHb 0.3 % (0.5-1.5); MetHb 0.4 % (0.0-1.5); O2Hb 98.2 % (94.0-97.0); PEEP,BG 5 cm H2O; SITE, ABG Right Radial; VENT MODE, BG CPAP PSV 12
[2021-06-10] MEDS: POTASSIUM CL. PREMIX PERIPHER. 50 ML IV SCH ×3 (08:36→11:52)
[2021-06-10] MEDS: BLOOD SUGAR DIAGNOSTIC 1 EACH STRIP IN SCH ×4 (09:39→21:47)
[2021-06-10] MEDS: HEPARIN SODIUM, PORCINE 5000 UNITS/1 ML VIAL SQ SCH ×2 (09:40→21:48)
[2021-06-10] MEDS ORDERED: DC PROPOFOL WHEN EXTUBATED XX PRN ×2 (11:00→13:00)
[2021-06-10] MEDS: IV NS 0.9% 1,000 ML IV SCH ×3 (12:39→23:59)
--- NOTE | 2021-06-10 13:13 | NUR ---
PT EXTUBATED AT THIS TIME PER MD ORDERS. OG TUBE REMOVED AT THIS TIME WITH ETT. PT APPEARS ALERT OX3, REQUESTING TO SEE HER SISTER SOON SHE WAS EXTUBATED. PT PLACED ON ROOM AIR. RESTRAINTS DC'D. WILL CONTINUE TO MONITOR.
--- NOTE | 2021-06-10 13:13 | NUR ---
pt extubated per md order. zero distress noted pt able to speak and clear airway. pt on room air. spo2 96%. zero sob noted at this time.
[2021-06-10] MEDS ORDERED: PROPOFOL 10MG/ML 50ML 50 ML IV PRN (15:00)
--- NOTE | 2021-06-10 18:12 | NUR ---
END OF SHIFT NOTE: PER PREVIOUS NOTE PT WAS EXTUBATED AT 1313 AND IS NOW ON ROOM AIR. PT APPEARS TO BE ALERT, OX3 AND COOPERATIVE. PT C/O NUMBNESS IN BILAT LEGS, RIGHT LEG >LEFT LEG. PT UNABLE TO MOVE TOES ON EITHER FEET, DR MESSINA OBSERVED AND TOLD RN HE WOULD LET DR. SALEEM KNOW. IV FUIDS CHANGED TO NS @200ML/HR PER MD ORDERS. PT HAD A TOTAL OF 75 ML OF URINE OUTPUT THIS SHIFT. M PT CHECKED ON HOURLY AND PRN BY NURSING STAFF.
--- NOTE | 2021-06-10 22:47 | NUR ---
ICU/TIME STUDY TECHNOLOGIST LAB CAME MAG[facility] NIGHT LABS FOR POISION CONTROL, AST/ALT. AWAIT TO SEE IF THEY ARE TRENDING DOWN.
[2021-06-10 22:56] LABS: BILIRUBIN,DIRECT 0.5 mg/dL (0.0-0.2); BILIRUBIN,TOTAL 0.7 mg/dL (0.2-1.0); TOTAL PROTEIN, SERUM 3.7 g/dL (6.4-8.2)
[2021-06-10 23:04] LABS: ALBUMIN 1.2 g/dL (3.4-5.0)
--- NOTE | 2021-06-10 23:17 | NUR ---
ICU/PROJECT BUYER CRITCAL LAB VALUE OF ALBUMIN WAS 1.2, THIS WAS CALLED TO FORMULA WEIGHER SEA WHO SAID THAT SHE DOESN'T WANT TO GIVE ALBUMIN WITHOUT GIVING THE LASIX. SO AT THIS TIME, SHE WOULD LIKE PILAR TO ADDRESS THIS.
[2021-06-11] VITALS (24 sets, daily range): BP systolic 123–164; BP diastolic 71–97
--- NOTE | 2021-06-11 00:10 | NUR ---
ICU/CHICKEN DRESSER LIVER ENZYMES OF AST/ALT WERE DRAWN AND RESULTED, WITH LAB VALUES TRENDING DOWN FOR A THIRD TIME IN A ROW. POISON CONTROL CALLED AND SPOKE TO PRACHI WHO SAID THAT THEY ARE RECOMMENDING THAT WE CAN EITHER STOP OR CONTINUE AT THIS TIME WITH NO INDICATIONS TO CONTINUE. SEA WHO WAS MECHANICAL EQUIPMENT TEST ENGINEER, SPOKE TO AND WAS NOTIFED ABOUT RESULTS AND SAID TO STOP THE DRIP.
[2021-06-11] MEDS: BLOOD SUGAR DIAGNOSTIC 1 EACH STRIP IN SCH ×6 (01:18→22:59)
[2021-06-11] MEDS: PIPERACILLIN /TAZOBACTAM 2.25 G in IV D5W 50 ML IV SCH ×4 (05:37→23:29)
[2021-06-11] MEDS: IV NS 0.9% 1,000 ML IV SCH ×3 (05:50→13:00)
--- NOTE | 2021-06-11 06:28 | NUR ---
ICU/RIVET SPINNER PT CURRENTLY CONTINUES TO HAVE LEFT EYE ORBITAL EDEMA. PT ALSO CONTINUES TO HAVE BILATERAL UPPER AND LOWER EXTREMITY EDEMA +4. ALONG WITH SWELLING TO VAGINAL AREA AND WEEPING. PT ONLY HAD 30ML OF URINE. PT GETS 200ML OF FLUID AND HOUR FOR THE PAST 3 DAYS. ICU MANAGER WAS NOTIFED AND ASKED IF SHE WOULD LIKE TO DECREASE THE FLUIDS WHICH SHE SAID NO.
--- NOTE | 2021-06-11 07:30 | NUR ---
OPENING NOTE: REPORT RECEIVED FROM SAVANAH TAYLRO. PT ALERT OX3. NO CHANGES OVERNIGHT IN URINE OUTPUT OR SWELLING PER REPORT. AM LABS NOT AVAILABLE AT THIS TIME. WILL CONTACT LAB FOR RESULTS. PT CHECKED ON HOURLY AND PRN BY NURSING STAFF.
[2021-06-11] MEDS ORDERED: VANCOMYCIN 0.75 GM in IV D5W 250 ML IV SCH (08:00)
[2021-06-11] MEDS: HEPARIN SODIUM, PORCINE 5000 UNITS/1 ML VIAL SQ SCH ×2 (09:00→21:00)
[2021-06-11 09:08] LABS: CREATININE 6.2 mg/dL (0.6-1.3)
[2021-06-11 09:13] LABS: POTASSIUM 2.8 mmol/L (3.5-5.1)
[2021-06-11 09:14] LABS: CALCIUM, SERUM 4.5 mg/dL (8.5-10.1)
[2021-06-11 09:19] LABS: BASOPHILS % (AUTO) 0.1 % (0.0-2.0); EOSINOPHILS % (AUTO) 0.2 % (0.0-6.0); HEMATOCRIT 25 % (33-45); HEMOGLOBIN 8.6 g/dL (11.5-14.8); LYMPHOCYTES % (AUTO) 9.4 % (20.0-44.0); MEAN CORPUSCULAR HGB CONC 35 g/dl (31.0-36.0); MEAN CORPUSCULAR VOLUME 82 fL (82-100); MONOCYTES # (AUTO) 0.5 K/uL (0.1-1.30); MONOCYTES % (AUTO) 5.2 % (2.0-12.0); NEUTROPHILS # (AUTO) 8.6 K/uL (1.8-8.9); NEUTROPHILS % (AUTO) 85.1 % (43.0-81.0); PLATELET COUNT (AUTO) 97 K/uL (150-450); WHITE BLOOD COUNT (AUTO) 10.1 K/uL (4.3-11.0)
--- NOTE | 2021-06-11 09:30 | NUR ---
PER PHARMACY HOLD AM DOSE OF VANCO FOR TROUGH OF 21
--- NOTE | 2021-06-11 09:51 | NUR ---
PER DR SALEEM OK TO GIVEN HEPARIN DESPITE PLT OF 97.
--- NOTE | 2021-06-11 09:53 | NUR ---
DR. MESSINA NOTIFIED OF AM LABS, ORDERS GIVEN. PER MAYURI GASPAR MAKING ROUNDS TODAY.
[2021-06-11] MEDS ORDERED: Calcium Gluconate 1GM/10ML 4.65 MEQ in IV D5W 50 ML IV ONE (10:00)
[2021-06-11] MEDS: POTASSIUM CL. PREMIX PERIPHER. 50 ML IV SCH ×3 (10:26→12:33)
[2021-06-11] MEDS: IV NS 0.9% 250 ML IV PRN (10:27)
[2021-06-11] MEDS: ALBUMIN 25% 50 GM in PREMIX 1 EA IV SCH ×2 (11:14→17:37)
[2021-06-11] MEDS ORDERED: DEXTROSE 50%-WATER 50 ML DISP.SYRIN IV PRN (12:00)
[2021-06-11 14:37] LABS: HEMOGLOBIN 7.2 g/dL (11.5-14.8)
[2021-06-11] MEDS: IV NS 0.9% 1,000 ML IV PRN ×2 (15:15→23:27)
--- NOTE | 2021-06-11 19:37 | NUR ---
END OF SHIFT NOTE: PT GOT A TOTAL OF 100GM OF ALBUMIN DIVIDED INTO 2 DOSES, 30MEQ OF POTASSIUM GIVEN, 1GM OF CALCIUM GLUCONATE GIVEN PER MD ORDERS. DR. SALEEM NOTIFIED OF LOW H/H, REPEAT ORDERED FOR 2100. SWELLING IN ARMS, LEGS AND LEFT EYE ARE SLIGHTLY LESS THAN AT THE BEGINNING OF THE SHIFT. TOTAL URINE OUTPUT WAS 40ML THIS SHIFT. URINE SAMPLE SENT TO LAB TODAY. PT CHECKED ON HOURLY AND PRN BY NURSING STAFF.
[2021-06-11] MEDS ORDERED: BUMETANIDE INJ 0.25 MG/ML VIAL ONE (20:25)
[2021-06-11] MEDS: VANCOMYCIN 0.75 GM in IV D5W 250 ML IV SCH (20:26)
[2021-06-11] MEDS ORDERED: BUMETANIDE INJ 4 MG in IV NS 0.9% 24 ML IV ONE (20:30)
--- NOTE | 2021-06-11 20:45 | NUR ---
ICU/HOT TOP LINER HELPER PT WAS GIVEN INCENTIVE SPIROMETER TO HELP OPEN UP LUNGS AND HELP PT BREATH BETTER. PT LACK THE DESIRE TO HELP SELF AND WANT TO GET BETTER. PT STARTED TO CRY SAID SHE JUST WANTS HER MEDICATION OF ATIVAN. WOULD LIKE TO LEAVE NOW SO THAT SHE CAN BE NORMAL AND TAKE MEDICATION. EXPLAIN THAT IT'S NOT SO EASY DUE TO PT HAD JUST ATTEMP SUICIDE. PT EXPRESSED THAT SHE WAS SUPPOSED TO AND THAT SHE ISN'T SUPPOSED TO BE HERE. PT HAS A SOCIAL SERVICE CONSULT IN WHEN MEDICAL CLEAR FROM .
--- NOTE | 2021-06-11 21:00 | NUR ---
ICU/SUPPLY CHAIN SPECIALIST 1944-PT'S SATURATION IS 80'S ON ROOM AIR, PLACED PT ON 2 LITERS VIA N/C. SATURATION CAME UP ONLY TO 92%. CALLED RENAL FOR ORDERS TO HELP PT PULL FLUID OFF. 2029-DR GASPAR GAVE ORDER FOR BUMEX DRIP 4GTT OVER 4 HOURS. PT IS POTIVE FLUID OF 19,000 FROM THE PAST FEW DAYS ALSO SHE IS POSITIVE WEIGHT GAIN OF 37LBS. WILL CONTINUE TO CLOSELY MONITOR THIS PT.
[2021-06-11 21:11] LABS: BILIRUBIN,URINE NEGATIVE (NEGATIVE); COLOR,URINE YELLOW (YELLOW); LEUKOCYTE ESTERASE ,URINE SMALL (NEGATIVE); NITRITE, URINE NEGATIVE (NEGATIVE); PH,URINE 8.5 (5.0-8.0); PROTEIN,URINE >=300 mg/dl (NEGATIVE); UGLUCOSE NEGATIVE (NEGATIVE); UROBILINOGEN,URINE 0.2 EU/dL (0.2)
[2021-06-11 21:14] LABS: HEMOGLOBIN 7.1 g/dL (11.5-14.8)
[2021-06-11 21:25] LABS: BACTERIA,URINE 1+ /HPF (None Seen); RBC,URINE 21-50 /HPF (0-2); SQUAMOUS EPITHELIAL CELL,UR Few /HPF (None Seen); WBC,URINE 21-50 /HPF (0-3)
--- NOTE | 2021-06-11 21:45 | NUR ---
ICU/CONSTRUCTION OR LEAK GANG LABORER PT IS HAVING LEFT EYE DRAINAGE, ASKED BOTTLE BOOTH ATTENDANT FOR OINT TO HELP WITH THE SWELLING AND INFECTION. SEA SAID YES, WILL WAIT FOR THIS ORDER.
--- NOTE | 2021-06-11 22:00 | NUR ---
ICU/CAREERS ADVISER HEPAIN SQ WAS HELD FOR LOW PLAT. AND H/H, PT IS CURRENTLY ON HER PERIOD. PT WAS CHANGED EARLIER NOTED SOME CLOTS AND PAD WAS FULL FROM BLOOD. CHARGE NURSE MADE AWARE.
--- NOTE | 2021-06-11 22:30 | NUR ---
ICU/SURGICAL AIDE PT'S 2200 BLOOD SUGAR IS 77. WILL CONTINUE TO MONITOR THIS ORDERED FROM MD AND HOSPITAL PROTOCAL.
--- NOTE | 2021-06-11 22:50 | NUR ---
ICU/ROOM SERVICE SERVER URINE SENT FOR UA & URINE CULTURE. ORDER PLACED AND COLLECTED FROM DAY SHIFT NURSE.
[2021-06-12] VITALS (25 sets, daily range): BP systolic 92–165; BP diastolic 31–94
--- NOTE | 2021-06-12 00:08 | NUR ---
ICU/RIB CUTTER PT COMPLAINED ABOUT SHORTNESS OF BREATH, STAT CXR DONE. WAIT FOR ANY RESULTS.
[2021-06-12] MEDS: LABETALOL 20 MG/4 ML VIAL IV PRN ×3 (02:22→11:26)
--- NOTE | 2021-06-12 02:45 | NUR ---
ICU/ROCK MASON PT WAS COMPLAINING ABOUT SEVERE SHORTNESS OF BREATH, CRYING, ALSO COMPLAINING ABOUT WITHDRAWAL. NOTIFIED THE DR SURGICAL ASST SHABBIR WHO CAME TO SEE THE PT. GAVE AN ORDER FOR ATIVAN 4MG IVP NOW AND MORPHINE 2MG IVP NOW FOR WITHDRAWALS. HEART RATE INCREASED AND BP HAVE BOTH BEEN ELEVATED. CHARGE NURSE MADE AWARE OF THIS AND ORDERS WERE CARRIED OUT. Addendum: 06/12/21 at 0314 by TU DURBIN RN WRONG CHART OPEN
--- NOTE | 2021-06-12 02:55 | NUR ---
ICU/CUTTING TORCH OPERATOR PT WAS COMPLAINING ABOUT SEVERE SHORTNESS OF BREATH, CRYING, ALSO COMPLAINING ABOUT WITHDRAWAL. NOTIFIED THE DR SALES MARKET LEADER SHABBIR WHO CAME TO SEE THE PT. GAVE AN ORDER FOR ATIVAN 4MG IVP NOW AND MORPHINE 2MG IVP NOW FOR WITHDRAWALS. HEART RATE INCREASED AND BP HAVE BOTH BEEN ELEVATED. CHARGE NURSE MADE AWARE OF THIS AND ORDERS WERE CARRIED OUT.
[2021-06-12] MEDS ORDERED: LORAZEPAM INJ 2 MG/ML VIAL IV ONE (03:00)
[2021-06-12] MEDS: TOBRAMYCIN OPHTH 5ML 5 ML BOTTLE LEFTEYE SCH ×6 (03:00→23:03)
[2021-06-12] MEDS ORDERED: MORPHINE SULFATE INJ 2 MG/ML DISP.SYRIN IV PRN (03:00)
[2021-06-12] MEDS: PIPERACILLIN /TAZOBACTAM 2.25 G in IV D5W 50 ML IV SCH ×5 (05:37→23:03)
[2021-06-12 05:57] LABS: CREATININE 7.3 mg/dL (0.6-1.3); POTASSIUM 3.5 mmol/L (3.5-5.1)
[2021-06-12 06:00] LABS: OCCULT BLOOD STOOL NEGATIVE (NEGATIVE)
[2021-06-12 06:22] LABS: CALCIUM, SERUM 5.2 mg/dL (8.5-10.1)
[2021-06-12] MEDS: IV NS 0.9% 1,000 ML IV PRN (06:47)
--- NOTE | 2021-06-12 06:53 | NUR ---
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 0630-ZOFRAN X1 NAUSEA. 0645-CALLED DR GASPAR ABOUT NO URINE OUTPUT AND THIRD SPACING, AND SHORTNESS OF BREATH. AND OUT COME FROM BUMEX DRIP.
[2021-06-12] MEDS: BLOOD SUGAR DIAGNOSTIC 1 EACH STRIP IN SCH ×4 (07:55→21:36)
[2021-06-12] MEDS ORDERED: Calcium Gluconate 1GM/10ML 4.65 MEQ in IV D5W 50 ML IV ONE (08:00)
--- NOTE | 2021-06-12 08:00 | NUR ---
RN NOTE RECEIVED PT IN BED, A&OX 4, ON 2L NC, 90% O2 SAT, WITH CRACKLES, NOT IN DISTRESS, SINUS RHYTHM HR 75 ON MONITOR, DENIES CHEST DISCOMFORT AT THIS TIME, WITH NS AT 200 ML/HR INFUSING ON LEFT UPPER ARM SITE CLEAR. PATIENT IS BED REST, PLAN OF CARE DISCUSSED VERBALIZED UNDERSTANDING. SAFETY MEASURES IN PLACE, BED LOW LOCKED, SR UPX 2, HOB UP 30 DEG, CALL LIGHT WITHIN REACH, WILL CONTINUE TO MONITOR
[2021-06-12] MEDS: HEPARIN SODIUM, PORCINE 5000 UNITS/1 ML VIAL SQ SCH ×2 (08:24→21:36)
--- NOTE | 2021-06-12 08:47 | NUR ---
BULWARK CARPENTER NOTES SPOKE WITH DR. CHILDERS RE PATIENT FOR PSYCH EVAL. PATIENT WAS INFORMED THAT SHE WILL BE NEEDING HEMODIALYSIS AND HD CATHETER PLACEMENT, BUT PATIENT STATED " I WANT TO BE SET FREE" PER DR. CHILDERS, HE WILL THE PATIENT TODAY.
--- NOTE | 2021-06-12 09:40 | NUR ---
RN NOTES DR. SALEEM WAS AT BEDSIDE. EXPLAINED TO PATIENT BENEFITS OF HD. AND AGREED TO SIGN CONSENT BUT NOW PATIENT WISH TO SPEAK TO PSYCHOLOGIST FIRST BEFORE SIGNING CONSENT.
--- NOTE | 2021-06-12 10:25 | NUR ---
RN NOTES CRITICAL LAB RESULT PER LAB PITA AT 1021 AM - CKMB 53.[address] SALEEM. NNO
[2021-06-12] MEDS: IV D5/ 0.9% NACL 1,000 ML IV PRN ×2 (14:31→22:05)
--- NOTE | 2021-06-12 15:58 | NUR ---
RN NOTES CT FACIAL WO CONTRAST FOR LEFT EYE BLOW OUT FRACTURE, RETROBULBAR HEMATOMA COVER WITH LEFT EYE WITH EYE PATCH
[2021-06-12] MEDS: LORAZEPAM INJ 2 MG/ML VIAL IV PRN ×2 (16:21→23:04)
[2021-06-12] MEDS: MORPHINE SULFATE INJ 2 MG/ML DISP.SYRIN IV PRN ×2 (16:22→23:03)
--- NOTE | 2021-06-12 16:24 | NUR ---
RN NOTES S/P HD CATH PLACEMENT RIGHT GROIN BY DR. MCCRAY.
--- NOTE | 2021-06-12 18:16 | NUR ---
RN NOTE PATIENT ON HEMODIALYSIS, ANTIBIOTICS HELP AT THIS TIME. WILL CONTINUE TO MONITOR.
--- NOTE | 2021-06-12 18:56 | NUR ---
RN CLOSING NOTE PATIENT IN BED, ASLEEP, EASILY AROUSABLE. ON 3L O2 NASAL CANNULA WITH NO SIGNS OF LABORED BREATHING AT THIS TIME. PATIENT HAS AN LEFT UA PICC LINE RUNNING D5NS AT 200C/HR, LEFT AC PIV AND A RIGHT FEMORAL HD CATHETER IN PLACE. PATIENT RECEIVING HEMODIALYSIS AT THIS TIME, TOLERATING WELL. BED LOCKED AND IN LOWEST POSITION, CALL LIGHT WITHIN REACH, 3 SIDE RAILS UP. ALL SAFETY MEASURES IMPLEMENTED. WILL ENDORSE TO WEBFOCUS DEVELOPER NURSE.
--- NOTE | 2021-06-12 20:08 | NUR ---
RN NOTE PATIENT ALERT AND ORIENTED X3-4. ON O2 3L VIA NASAL CANNULA, NO S/S OF RESPIRATORY DISTRESS. DENIES ANY PAIN OR DISCOMFORT. DIALYSIS COMPLETED, 2000L REMOVED. RIGHT GROIN HD CATH INTACT, DRESSING DRY AND CLEAN. WITH MOHAMUD CATH, OUTPUT POOR. MICHAEL PICC LINE INFUSING D5NS @ 200CC/HR, NO S/S OF INFILTRATION. PATIENT EATING AT THIS TIME, REQUESTED FOR FOOD. ALL NEEDS ANTICIPATED. CALL LIGHT WITHIN REACH.
--- NOTE | 2021-06-12 21:30 | NUR ---
RN NOTE SPOKE WITH SCHUYLER SHEA, NOTIFIED PT HGB, HCT, PLATELET. WITH ORDERS TO GIVE HEPARIN DOSE. NOTED.
[2021-06-12] MEDS: INSULIN REGULAR, HUMAN 100 UNIT/ML 3 ML VIAL SQ PRN (21:37)
[2021-06-13] VITALS (30 sets, daily range): BP systolic 115–161; BP diastolic 33–104
[2021-06-13] MEDS: LABETALOL 20 MG/4 ML VIAL IV PRN (01:13)
--- NOTE | 2021-06-13 01:13 | NUR ---
RN NOTE LABETALOL PRN ADMINISTERED, SBP 161/95, HR 82. WILL CONTINUE TO MONITOR.
[2021-06-13] MEDS: TOBRAMYCIN OPHTH 5ML 5 ML BOTTLE LEFTEYE SCH ×6 (03:20→23:52)
[2021-06-13] MEDS: IV D5/ 0.9% NACL 1,000 ML IV PRN ×2 (04:05→10:23)
[2021-06-13 04:57] LABS: CREATININE 5.3 mg/dL (0.6-1.3)
[2021-06-13 05:09] LABS: POTASSIUM 2.7 mmol/L (3.5-5.1)
[2021-06-13] MEDS ORDERED: POTASSIUM CHLORIDE 20 MEQ TAB.PRT.SR PO ONE (06:00)
[2021-06-13] MEDS: PIPERACILLIN /TAZOBACTAM 2.25 G in IV D5W 50 ML IV SCH ×3 (06:09→21:41)
--- NOTE | 2021-06-13 06:52 | NUR ---
RN NOTE PATIENT ALERT AND ORIENTED X3-4. ON O2 3L VIA NASAL CANNULA O2 SAT 100%. NO S/S OF DISCOMFORT. RIGHT GROIN HD CATH INTACT, DRESSING DRY AND CLEAN. MOHAMUD CATH, OUTPUT 50CC. WEIGHT 179LBS. STILL NOTED WITH LEFT ORBITAL SWELLING AND +4 BLE/BUE, AND VAGINAL FOLDS EDEMA. MICHAEL PICC LINE INFUSING D5NS @ 200CC/HR, NO S/S OF INFILTRATION. KEPT CLEAN AND DRY. TURNED AND REPOSITIONED. ALL NEEDS ATTENDED PROMPTLY. CALL LIGHT WITHIN REACH. WILL ENDORSE TO AM SHIFT.
[2021-06-13] MEDS: BLOOD SUGAR DIAGNOSTIC 1 EACH STRIP IN SCH ×4 (07:36→21:57)
[2021-06-13] MEDS: INSULIN REGULAR, HUMAN 100 UNIT/ML 3 ML VIAL SQ PRN ×4 (07:48→21:58)
[2021-06-13 08:41] LABS: BASOPHILS % (AUTO) 0.2 % (0.0-2.0); EOSINOPHILS % (AUTO) 1.2 % (0.0-6.0); HEMATOCRIT 21 % (33-45); HEMOGLOBIN 7.5 g/dL (11.5-14.8); LYMPHOCYTES % (AUTO) 10.3 % (20.0-44.0); MEAN CORPUSCULAR HGB CONC 35 g/dl (31.0-36.0); MEAN CORPUSCULAR VOLUME 82 fL (82-100); MONOCYTES # (AUTO) 0.6 K/uL (0.1-1.30); MONOCYTES % (AUTO) 5.7 % (2.0-12.0); NEUTROPHILS # (AUTO) 8.1 K/uL (1.8-8.9); NEUTROPHILS % (AUTO) 82.6 % (43.0-81.0); PLATELET COUNT (AUTO) 107 K/uL (150-450); RED BLOOD CELL COUNT(AUTO) 2.58 MIL/uL (4.0-5.2); WHITE BLOOD COUNT (AUTO) 9.8 K/uL (4.3-11.0)
[2021-06-13] MEDS: MORPHINE SULFATE INJ 2 MG/ML DISP.SYRIN IV PRN ×2 (08:49→17:42)
--- NOTE | 2021-06-13 09:00 | NUR ---
SEEN BY ,UPDATED ABOUT PATIENT CONDITION WITH LABS,MADE AWARE ABOUT CONCERN ABOUT SITTER AND H/O SUICIDAL ATTEMPTS AND IDEATIONS.AWAITING FOR PSYCH CONSULT.WILL CONTINUE TO MONITOR.
[2021-06-13] MEDS: HEPARIN SODIUM, PORCINE 5000 UNITS/1 ML VIAL SQ SCH ×2 (09:16→21:43)
--- NOTE | 2021-06-13 09:24 | NUR ---
H/H 7.5.DR SALEEM MADE AWARE OK TO GIVE HEPARIN.CPK RESULT NOTIFIED.
[2021-06-13 10:21] LABS: BAND % (MANUAL) 2 % (0.0-5.0); EOSINOPHILS % (MANUAL) 2 % (0-4); LYMPHOCYTES % (MANUAL) 10 % (16-48); MONOCYTES % (MANUAL) 2 % (0-11.0); NEUTROPHILS % (MANUAL) 84 (42-76)
[2021-06-13] MEDS ORDERED: DEXAMETHASONE SOD PHOSPHATE 10 MG/ML VIAL IV STA (11:19)
[2021-06-13] MEDS: LANOLIN/MIN OIL/PETROLAT,WHT 3.5 GM TUBE EACHEYE SCH ×2 (13:20→17:45)
[2021-06-13] MEDS: LORAZEPAM INJ 2 MG/ML VIAL IV PRN (15:50)
--- NOTE | 2021-06-13 20:00 | NUR ---
RN NOTE RECEIVED PT SLEEPING, AROUSES EASILY. ALERT AND ORIENTED. ON 3L O2 VIA NC. DENIES ANY SOB OR PAIN. PT CURRENTLY RECEIVING HEMODIALYSIS. NO SIGNS OF DISTRESS NOTED. TELE SHOWS SR. LEFT EYE PATCH INTACT. NOTED WITH GENERALIZED EDEMA. MOHAMUD IN PLACE. PT WITH DUE ATB. WILL GIVE ONCE HD IS DONE. WILL CONTINUE TO MONITOR.
--- NOTE | 2021-06-13 20:18 | NUR ---
RN NOTE 0715:RECEIVED REPORT FROM PM NURSE,PATIENT IN BED,ALERT AND ORIENTED X4. ON O2 3L VIA NASAL CANNULA O2 SAT 100%. NO S/S OF DISCOMFORT. RIGHT GROIN HD CATH INTACT, DRESSING DRY AND CLEAN. MOHAMUD CATH NO OUTPUT . EDEMA NOTED ON LEFT ORBIT,WITH NO EYE MOVEMENT AND REACTION NOTED.CT DONE ON 06/12, SWELLING BLE/BUE, AND VAGINAL FOLDS AND PERINEAL AREA. MICHAEL PICC LINE INFUSING D5NS @ 200CC/HR, NO S/S OF INFILTRATION. BED IS LOW AND IN LOCKED POSITION.CALL LIGHT IN REACH.BED ALARM IS ON SRX3.WILL CONTINUE TO MONITOR. 1400: ORDERED MRI BRAIN WITH AND WITHOUT CONTRAST,MRI CALLED.WILL BE SCHEDULED FOR TOMORROW 829.CHECK LIST DONE. PER NO MRI WITH CONTRAST, MADE AWARE.CHANGE ORDER MRI WITH OUT CONTRAST, MADE SEEN PATIENT FOR L EYE SWELLING.RECEIVED NEW ORDERS. 1944:ONGOING HD,ZOZYN TO GIVE AFTER HD,ENDORSED TO PM NURSE FOR DOROTHY.
[2021-06-13] MEDS: VANCOMYCIN 0.75 GM in IV D5W 250 ML IV SCH (21:00)
--- NOTE | 2021-06-13 21:59 | NUR ---
RN NOTE HD DONE 3L OUT. NO SIGNS OF DISTRESS. DUE IV ZOSYN GIVEN. VANCOMYCIN ATB HELD DUE TO VANCO RANDOM 23.
[2021-06-14] VITALS (24 sets, daily range): BP systolic 123–173; BP diastolic 33–108
[2021-06-14] MEDS: MORPHINE SULFATE INJ 2 MG/ML DISP.SYRIN IV PRN ×3 (00:29→17:29)
[2021-06-14] MEDS: PIPERACILLIN /TAZOBACTAM 2.25 G in IV D5W 50 ML IV SCH ×5 (01:03→23:07)
[2021-06-14] MEDS: TOBRAMYCIN OPHTH 5ML 5 ML BOTTLE LEFTEYE SCH ×6 (03:06→23:06)
[2021-06-14] MEDS: IV NS 0.9% 250 ML IV PRN (04:00)
--- NOTE | 2021-06-14 04:00 | NUR ---
RN NOTE PT SATING 100 % AT 3L. NO SIGNS OF DISTRESS NOTED. DENIES SOB. TITRATED DOWN TO 2L O2.
[2021-06-14 04:25] LABS: BASOPHILS % (AUTO) 0.1 % (0.0-2.0); HEMATOCRIT 24 % (33-45); HEMOGLOBIN 8.4 g/dL (11.5-14.8); LYMPHOCYTES # (AUTO) 1.2 K/uL (0.8-4.8); LYMPHOCYTES % (AUTO) 7.1 % (20.0-44.0); MEAN CORPUSCULAR HGB CONC 35 g/dl (31.0-36.0); MEAN CORPUSCULAR VOLUME 82 fL (82-100); MONOCYTES # (AUTO) 0.7 K/uL (0.1-1.30); MONOCYTES % (AUTO) 4.3 % (2.0-12.0); NEUTROPHILS # (AUTO) 14.8 K/uL (1.8-8.9); NEUTROPHILS % (AUTO) 88.5 % (43.0-81.0); PLATELET COUNT (AUTO) 110 K/uL (150-450); RED BLOOD CELL COUNT(AUTO) 2.95 MIL/uL (4.0-5.2); WHITE BLOOD COUNT (AUTO) 16.8 K/uL (4.3-11.0)
[2021-06-14 04:35] LABS: CALCIUM, SERUM 7.2 mg/dL (8.5-10.1); CREATININE 4.5 mg/dL (0.6-1.3); POTASSIUM 3.1 mmol/L (3.5-5.1)
[2021-06-14] MEDS: LORAZEPAM INJ 2 MG/ML VIAL IV PRN ×2 (05:34→13:08)
--- NOTE | 2021-06-14 05:35 | NUR ---
RN NOTE PT FEELING ANXIOUS, REQUESTED FOR ATIVAN. MED GIVEN ORDERED. KEEP IN A CALM AND QUIET ENVIRONMENT. WILL CONTINUE TO MONITOR.
--- NOTE | 2021-06-14 07:00 | NUR ---
RN NOTE PT TOLERATES 2L O2. NOT IN ANY DISTRESS. ABLE TO MAKE NEEDS KNOWS. GENERALIZED SWELLING STILL NOTED. EXTREMITIES ELEVATED. DUE ATBS WERE GIVEN, REMAIN AFEBRILE. HD CATH REMAIN INTACT, NO BLEEDING NOTED. MOHAMUD DRAINED ABOUT 5OML URINE OUTPUT. DENIES ANY SUICIDAL IDEATION AT THIS TIME. ON FREQUENT VISUAL CHECKS. LEFT EYE PATCH INTACT, CHANGED CLEAN ONE, EYE DROP GIVEN SCHEDULED. WILL ENDORSE TO NEXT SHIFT NURSE FOR DOROTHY.
--- NOTE | 2021-06-14 07:30 | NUR ---
PRESSROOM WORKER OPENING NOTE PT IN BED SEMIFOWLER'S BREATHING NC 2L, SPO2 100% WITH NO S/S OF RESP DISTRESS. PT A/Ox3/3, STATES BILAT LEG PAIN OF 8/10, WILL ADMIN PAIN MEDS ORDERED. GENERALIZED BLE SWELLING NOTED, BLE ELEVATED. PT RT FEMORAL HD CATH INTACT, NO BLEEDING NOTED. PT MICHAEL PICC FLUSHED AND INTACT, NO S/S OF INFECTION/INFILTRATION, RUNNING TKO. MOHAMUD CATH INTACT WITH NO URINE OUTPUT CURRENTLY. PT DENIES ANY SUICIDAL IDEATION AT THIS TIME. PT IN FRONT OF NURSING STATION, WILL CHECK ON FREQUENTLY. LEFT EYE PATCH INTACT. ALL PT SAFETY PRECAUTIONS IN PLACE, WILL CONT TO MONITOR
[2021-06-14] MEDS: BLOOD SUGAR DIAGNOSTIC 1 EACH STRIP IN SCH ×4 (07:52→22:19)
[2021-06-14] MEDS: LANOLIN/MIN OIL/PETROLAT,WHT 3.5 GM TUBE EACHEYE SCH ×2 (08:22→17:00)
[2021-06-14] MEDS: HEPARIN SODIUM, PORCINE 5000 UNITS/1 ML VIAL SQ SCH ×2 (08:24→22:00)
--- NOTE | 2021-06-14 11:15 | NUR ---
RN NOTE DNP LEAH AWARE OF PT K 3.1 AND CKMB OF 30.6, DOWN FROM 06/11 OF 53.5
[2021-06-14] MEDS ORDERED: POTASSIUM CHLORIDE 20 MEQ TAB.PRT.SR PO ONE (12:00)
[2021-06-14] MEDS: INSULIN REGULAR, HUMAN 100 UNIT/ML 3 ML VIAL SQ PRN ×2 (12:31→22:16)
--- NOTE | 2021-06-14 16:36 | NUR ---
RN NOTE PT RETURNED FROM MRI SCAN OF HEAD W/O CONTRAST IN STABLE CONDITION. WILL CONT TO MONITOR
[2021-06-14] MEDS ORDERED: LIOT5TAB11 PO (17:37)
[2021-06-14] MEDS ORDERED: LEVO88TA5 PO (17:37)
[2021-06-14] MEDS ORDERED: APRE30TA2 PO (17:37)
[2021-06-14] MEDS ORDERED: ALPR2TAB7 PO (17:37)
--- NOTE | 2021-06-14 19:05 | NUR ---
RECEIVED PT ON BED AWAKE A/O X4 ON ROOM AIR SPO2 97% NO SIGN OF RESPIRATORY DISTRESS,SWELLING OF LEFT EYE STILL NOTED, BEDSIDE MONITOR READS SINUS RHYTHM 80'S, LOWER EXTREMITIES SWELLING STILL NOTED PT COMPLAINING OF LEFT FOOT PAIN 02/[address] NO URINE OUTPUT NOTED PT HAVE YAKOV PICC DRESSING CLEAN DRY AND INTACT, BED ON LOWEST POSITION AND LOCKED SIDE RAILS UP X2 CALL LIGHT WITHIN REACH WILL CONT TO MONITOR
--- NOTE | 2021-06-14 19:24 | NUR ---
DRAW STRING KNOTTER CLOSING NOTE PT IN STABLE CONDITION BREATHING NC 2L, SPO2 99%. PT DENIES SUICIDAL IDEATION. ALL PT SAFET Y PRECAUTIONS IN PLACE, DOROTHY ENDORSED TO COFOUNDER NURSE
--- NOTE | 2021-06-14 19:50 | NUR ---
RECEIVED CALL FROM DR JAMISON AND HE IS ASKING ABOUT THE PT, REPORTED TO HIM THAT PT IS STILL COMPLAINING OF ABDOMINAL PAIN DESPITE THE 4MG MORPHINE GIVEN @ 1800, DR JAMISON SAID THAT DOSE IS NOT ENOUGH FOR THE PT DUE TO HIS RECENT SURGERY HE MADE AN ORDER FOR MORPHINE 8MG IV Q2H, HE ALSO WANT TO START PT ON PO MEDICATION OF MOTRIN 800 MG Q8H RTC, GABAPENTIN 300 MG PO Q8H RTC AND TYLENOL 325 MG X2 Q8H RTC ALSO TO D/C THE TERRY NOTED AND CARRIED OUT Addendum: 06/14/21 at 2099 by AURELIA NAVA RN WRONG CHARTING DISREGARD Addendum: 06/14/21 at 2099 by AURELIA NAVA RN ERROR CHARTING
--- NOTE | 2021-06-14 19:50 | NUR ---
REPORT GIVE TO MS KARO CHAMPION OF 3W FOR DOROTHY
--- NOTE | 2021-06-14 20:10 | NUR ---
TRANSFER PT TO ROOM 309 VIA BED NO SIGN OF RESPIRATORY DISTRESS, TRANSFER TOLERATED WELL COMIC BOOK WRITER AT BEDSIDE BELONGINGS ENDORSE TO RECEIVING RN
--- NOTE | 2021-06-14 20:21 | NUR ---
MS RN OPENING NOTES PT TRANSFERRED FROM ICU PT RECEIVED SEMIFOWLER'S WITH NO S/S OF RESP DISTRESS. PT A/Ox3/ GENERALIZED BLE SWELLING NOTED, BLE ELEVATED. PT RT FEMORAL HD CATH INTACT, NO BLEEDING NOTED. PT MICHAEL PICC FLUSHED AND INTACT, NO S/S OF INFECTION/INFILTRATION MOHAMUD CATH INTACT WITH NO URINE OUTPUT CURRENTLY. PT DENIES ANY SUICIDAL IDEATION AT THIS TIME. PT IN FRONT OF NURSING STATION, WILL CHECK ON FREQUENTLY. LEFT EYE NOTED WITH SWELLING. ALL PT SAFETY PRECAUTIONS IN PLACE, WILL CONT TO MONITOR.
--- NOTE | 2021-06-15 | NUR ---
RN NOTES PT REPORTED 8/10 ON A NUMERIC PAIN SCALE PRN MORPHINE GIVEN AND TOLERATED WELL. WILL CONTINUE TO MONITOR
[2021-06-15 00:45] VITALS: BP 133/76
[2021-06-15] MEDS: LORAZEPAM INJ 2 MG/ML VIAL IV PRN ×2 (01:08→23:09)
--- NOTE | 2021-06-15 01:08 | NUR ---
RN NOTES PT REPORTING ANXIETY PRN ATIVAN GIVEN AND TOLERATED WELL. WILL CONTINUE TO MONITOR
[2021-06-15] MEDS: TOBRAMYCIN OPHTH 5ML 5 ML BOTTLE LEFTEYE SCH ×6 (03:01→23:10)
[2021-06-15 04:10] VITALS: BP 133/76
[2021-06-15] MEDS: PIPERACILLIN /TAZOBACTAM 2.25 G in IV D5W 50 ML IV SCH ×3 (05:28→18:16)
[2021-06-15 06:22] LABS: BASOPHILS % (AUTO) 0.2 % (0.0-2.0); EOSINOPHILS % (AUTO) 2.7 % (0.0-6.0); HEMATOCRIT 24 % (33-45); HEMOGLOBIN 8.2 g/dL (11.5-14.8); LYMPHOCYTES # (AUTO) 3.4 K/uL (0.8-4.8); LYMPHOCYTES % (AUTO) 17.5 % (20.0-44.0); MEAN CORPUSCULAR HGB CONC 34 g/dl (31.0-36.0); MEAN CORPUSCULAR VOLUME 84 fL (82-100); MONOCYTES # (AUTO) 1.4 K/uL (0.1-1.30); MONOCYTES % (AUTO) 7.1 % (2.0-12.0); NEUTROPHILS # (AUTO) 14.2 K/uL (1.8-8.9); NEUTROPHILS % (AUTO) 72.5 % (43.0-81.0); PLATELET COUNT (AUTO) 143 K/uL (150-450); RED BLOOD CELL COUNT(AUTO) 2.86 MIL/uL (4.0-5.2); WHITE BLOOD COUNT (AUTO) 19.6 K/uL (4.3-11.0)
--- NOTE | 2021-06-15 06:45 | NUR ---
MS RN CLOSING NOTES PT ASLEEP WITH NO S/S OF RESP DISTRESS. PT A/Ox3/ GENERALIZED BLE SWELLING NOTED, BLE ELEVATED. PT RT FEMORAL HD CATH INTACT, NO BLEEDING NOTED. PT MICHAEL PICC FLUSHED AND INTACT, NO S/S OF INFECTION/INFILTRATION MOHAMUD CATH INTACT WITH NO YELLOW CLEAR URINE 15ML OUTPUT. PT DENIES ANY SUICIDAL IDEATION AT THIS TIME. PT IN FRONT OF NURSING STATION, WILL CHECK ON FREQUENTLY. LEFT EYE NOTED WITH SWELLING. SITTER AT BEDSIDE ALL PT SAFETY PRECAUTIONS IN PLACE, WILL CONT TO MONITOR ALL DUE MEDS GIVEN AND TOLERATED WELL WILL ENDORSE CARE TO DAY SHIFT NURSE.
[2021-06-15] MEDS: BLOOD SUGAR DIAGNOSTIC 1 EACH STRIP IN SCH ×4 (06:54→22:06)
[2021-06-15 07:04] LABS: ALBUMIN 1.7 g/dL (3.4-5.0); BILIRUBIN,TOTAL 0.7 mg/dL (0.2-1.0); CREATININE 6.2 mg/dL (0.6-1.3); MAGNESIUM 1.8 mg/dL (1.8-2.4); PHOSPHORUS 4.5 mg/dL (2.5-4.9); POTASSIUM 3.2 mmol/L (3.5-5.1)
[2021-06-15 07:21] LABS: CALCIUM, SERUM 7.2 mg/dL (8.5-10.1)
[2021-06-15 08:00] VITALS: BP 137/85
[2021-06-15] MEDS: LANOLIN/MIN OIL/PETROLAT,WHT 3.5 GM TUBE EACHEYE SCH ×2 (08:45→17:27)
[2021-06-15] MEDS: MORPHINE SULFATE INJ 2 MG/ML DISP.SYRIN IV PRN ×4 (09:12→22:30)
[2021-06-15 09:18] LABS: BAND % (MANUAL) 1 % (0.0-5.0); EOSINOPHILS % (MANUAL) 2 % (0-4); LYMPHOCYTES % (MANUAL) 13 % (16-48); MONOCYTES % (MANUAL) 11 % (0-11.0); NEUTROPHILS % (MANUAL) 73 (42-76)
--- NOTE | 2021-06-15 10:58 | NUR ---
MS RN OPENING NOTES PATIENT ASLEEP IN BED, A/Ox3. RIGHT FEMORAL HD CATH INTACT, NO BLEEDING NOTED. MICHAEL PICC FLUSHED AND INTACT. MOHAMUD CATH INTACT WITH YELLOW CLEAR URINE, NO S/SX OF INFILTRATIONS NOTED. LEFT EYE NOTED WITH SWELLING. SITTER AT BEDSIDE. PATIENT SAFETY PRECAUTIONS IN PLACE: BED IN LOW, LOCKED POSITION, SIDERAILS UP X2, CALL LIGHT WITHIN REACH. WILL CONT TO MONITOR.
[2021-06-15] MEDS ORDERED: VANCOMYCIN POST DIALYSIS 500MG IV PRN (11:30)
--- NOTE | 2021-06-15 12:49 | NUR ---
SS Consult: SS Consult requested for overdose on fentanyl. Pt. is a 35-year-old woman that stated they attempted suicide by an overdose on fentanyl at home. Pt. stated that prior to admission she lived at [[address] [place], [place] [address]; [phone]] where her mother was staying with her temporarily. Pt. is alert and oriented x4 and appears unkempt with tattoos in face, left eye edema and pt. stated she has BLE edema . Pt. presented with a depressed mood with flat affect. Pt. spoke with slow speech. Pt. was guarded and provided poor eye contact. SW explored pt.s drug & ETOH use. Pt. stated that she uses fentanyl whenever she can get it. Pt. stated that she has tried a detox center for ten days one time and that it did not work. SW offered addiction resources and MAT resources and pt. accepted them. Pt. stated that she currently could not walk due to swelling in her legs. ROHAN explored pt.s mental health Hx. Pt. stated that they have a history of bipolar disorder but do not see a psychiatrist or take medication. Pt. stated they were having visual hallucinations due to the swelling in her eye and seeing dots. Pt. denies current SI/HI. ROHAN explored pt.s support system. Pt. stated her support system includes her mother and sister, Tello [phone]. ROHAN explored pt.s financial situation. Pt. stated she received EBT card, and SSDI. Pt. is pending prune washer consult pt. will either be placed on 51/50 hold for psychiatric Tx. or DC home to [[address] [place] [address]].SW will be available as needed. ROHAN provided pt. with MAT Tx resources for Fentanyl use and pt. accepted them. Pt. is in the contemplation phase of change. Pt. stated she may be interested and will use resources as needed. ROHAN also provided pt. with other addiction resources and mental health resources and pt. accepted them. Resources provided include: [facility]: [address] [place] [address] Intake hours: 5:45am9:00am, walk-ins Sunday, Sunday, [facility]: [address] [place] [address] Intake hours: 5:45am12:30pm, Sunday and [facility]: [address] [place] [address] Intake hours: 8:00am2:00pm, Sunday through Sunday ADDICTION RESOURCES For Drugs and Alcohol [facility] Substance Abuse Helpline(SAS)-[facility] Outpatient treatment, residential treatment, recovery support for youth and adults [facility] www.actionfamilycounsReferron [facility] Teen programs for drug/alcohol education and support [facility] [place]. Program for adults, sliding scale provides support and education [facility] [place] [facility] www.cooala - your brands.org Crystal; Outpatient/residential treatment programs; transition to sober living [facility] www.cri-help.org [place]; Outpatient and residential treatment programs; transition to sober living [facility] Drug Abuse Recovery [facility]; Outpatient education and supportive programs for teens and adults [facility] www.oasiswomensrecbob [facility].org [place]; Residential treatment and work program for females only [facility] www.[facility].org [place]: Outpatient/residential treatment program for teens and young adults [facility] www.[facility].org Tarza Detox, inpatient, outpatient for adults and youth [facility], [facility]. [place]; Outpatient programs and referrals to community residential programs. Alcoholics Anonymous -SFV information and meeting and schedules www.aa-intergroup.org Tz-Oxgx-Ykmjfmq https://al-anon.org/ [place] support groups for family of alcoholics. Marijuana Anonymous www.madistrict6.org -SFV listing of meetings Narcotics Anonymous www.na.org SOBER LIVING RESOURCES [facility] www.soberhousing.net A non-profit agency that provides resources to recovery and sober living homes throughout [place], [facility] Mens Sober Living Homes: A Work in Progress, [facility], [facility] Womens Sober Living Homes: [facility] x [phone] [place], [place] [facility] Coed Sober Living Homes: [facility] Counseling--Outpatient [facility] [address], [place] [address] (Specializes in in-depth psychotherapy for emotional distress: anxiety, depression, interpersonal conflicts, life transitions, childhood abuse) [facility] [address] [place] [address] (Assist with solving problem marital difficulties, separation & divorce, aging parents, & grief, chronic & terminal illness) [facility] [address] [place] [address] (Deal with loss & grief, anxiety, marital difficulties) Home[facility]ental Health Services [address], [address] [place] [address] (Provide in-home mental services to people who are incapable of leaving their homes) Organization for Needs of the Elderly Senior Service/Resource Center [address] [place] [address] [facility] [address] [place] [address] Mental Health Services [facility] [place] [address] [place], [place] [phone] Services: Outpatient therapy for children, teens, young adults, adults, older adults, and families; Psychiatric services, medication support Psychiatric Outpatient Services [facility] Partial Hospitalization and Intensive Outpatient Program (Managed Care and [place] Only)[address] [facility] [facility] [phone] [facility] Partial Hospitalization and Outpatient [id number] [facility]. [address] [place], [place] [phone] [facility] Partial Hospitalization and Outpatient [id number] [place], [place] [phone] [facility] Bernie [id number] [facility] [address] [place], [place] [phone] [facility] Partial Hospitalization and Outpatient [id number] [place], [phone] Crisis and Hotline Telephone Numbers 24-Hour service unless stated [place] Crisis Hotlines: [facility] Mental Health/Crisis Line........[phone] Suicide Prevention Center (24 Hours).......[phone] Suicide Prevention Crisis Center.......[phone] (24 Hours) Assaults Against Women Hotline.........368.869.2512 (24 Hours -- [facility]) Women and Children Crisis [facility]...........[phone] (24 Hours) Child Abuse Hotline............467.555.2966 [facility] Rape Treatment Center (24 Hours)..........[phone] Alcoholics Anonymous (24 Hours)..........[phone] Cocaine Anonymous (24 Hours)............[phone] Narcotics Anonymous (24 Hours)..........[phone] [address] [facility] [address], [place] [id number]
[2021-06-15] MEDS: INSULIN REGULAR, HUMAN 100 UNIT/ML 3 ML VIAL SQ PRN ×3 (12:53→23:17)
[2021-06-15 16:00] VITALS: BP 121/80
--- NOTE | 2021-06-15 19:18 | NUR ---
MS RN CLOSING NOTES PATIENT AWAKE IN BED, A/Ox3. ON ROOM AIR, NO SOB OR S/SX OF DISTRESS NOTED. RIGHT FEMORAL HD CATH INTACT, NO BLEEDING NOTED. MICHAEL PICC FLUSHED AND INTACT. MOHAMUD CATH INTACT WITH YELLOW CLEAR URINE AT 100CC, NO S/SX OF INFILTRATIONS NOTED. LEFT EYE NOTED WITH SWELLING. SITTER AT BEDSIDE. SAFETY PRECAUTIONS MAINTAINED: BED IN LOW, LOCKED POSITION, SIDERAILS UP X2, CALL LIGHT WITHIN REACH. WILL ENDORSE TO CIGAR PATCHER NURSE FOR DOROTHY.
[2021-06-15] MEDS: VANCOMYCIN 0.75 GM in IV D5W 250 ML IV SCH (19:39)
[2021-06-15 20:00] VITALS: BP 147/78
[2021-06-16] MEDS: PIPERACILLIN /TAZOBACTAM 2.25 G in IV D5W 50 ML IV SCH ×5 (00:22→23:18)
[2021-06-16] MEDS: TOBRAMYCIN OPHTH 5ML 5 ML BOTTLE LEFTEYE SCH ×6 (03:00→23:09)
--- NOTE | 2021-06-16 06:35 | NUR ---
MS RN NOTES AWAKE & RESPONSIVE. NOT IN ANY DISTRESS. NO SOB NOTED. DENIES ANY PAIN OR DISCOMFORT AT THIS TIME. WITH PICC LINE PATENT & INTACT. MONITORED ACCORDINGLY WITH SITTER AT BEDSIDE. CALL LIGHT WITHIN REACH. BED IN LOWEST POSITION. SR UP X 3 FOR SAFETY. WILL ENDORSE TO NEXT SHIFT.
[2021-06-16 06:40] LABS: BASOPHILS % (AUTO) 0.1 % (0.0-2.0); EOSINOPHILS % (AUTO) 1.1 % (0.0-6.0); HEMATOCRIT 25 % (33-45); HEMOGLOBIN 8.6 g/dL (11.5-14.8); LYMPHOCYTES # (AUTO) 4.1 K/uL (0.8-4.8); LYMPHOCYTES % (AUTO) 13.5 % (20.0-44.0); MEAN CORPUSCULAR HGB CONC 35 g/dl (31.0-36.0); MEAN CORPUSCULAR VOLUME 83 fL (82-100); MONOCYTES # (AUTO) 2.1 K/uL (0.1-1.30); MONOCYTES % (AUTO) 6.7 % (2.0-12.0); NEUTROPHILS # (AUTO) 24.2 K/uL (1.8-8.9); NEUTROPHILS % (AUTO) 78.6 % (43.0-81.0); PLATELET COUNT (AUTO) 114 K/uL (150-450); RED BLOOD CELL COUNT(AUTO) 2.98 MIL/uL (4.0-5.2)
[2021-06-16 06:46] LABS: WHITE BLOOD COUNT (AUTO) 30.8 K/uL (4.3-11.0)
--- NOTE | 2021-06-16 06:55 | NUR ---
SYSTEMS ARCHITECT NOTES WBC 30.8 CAITIE MCCRAY NOTIFIED. NNO AT THIS TIME. WILL CONTINUE TO MONITOR.
[2021-06-16] MEDS: BLOOD SUGAR DIAGNOSTIC 1 EACH STRIP IN SCH ×4 (07:22→22:37)
--- NOTE | 2021-06-16 07:30 | NUR ---
MS RN OPENING NOTE RECEIVED PT AWAKE IN BED. A/O X4. PT IS STABLE ON ROOM AIR WITH NO SOB OR S/S OF RESPIRATORY DISTRESS NOTED. 1:1 SITTER AT BEDSIDE FOR SAFETY. PT HAS NO S/O PAIN OR DISCOMFORT AT THIS TIME. IV ACCESS IN MICHAEL PICC, INTACT AND PATENT. PT NOTED WITH RIGHT FEMORAL HD CATH INTACT. PT DENIES SI/HI AT THIS TIME. SAFETY PRECAUTIONS MAINTAINED. BED IN LOWEST LOCKED POSITION, HOB ELEVATED, SIDE RAILS UP X2. CALL LIGHT AND TABLE WITHIN REACH. WILL CONTINUE TO MONITOR.
[2021-06-16 07:33] LABS: ALBUMIN 1.7 g/dL (3.4-5.0); BILIRUBIN,TOTAL 0.7 mg/dL (0.2-1.0); CALCIUM, SERUM 7.8 mg/dL (8.5-10.1); CREATININE 5.2 mg/dL (0.6-1.3); MAGNESIUM 1.9 mg/dL (1.8-2.4); PHOSPHORUS 3.7 mg/dL (2.5-4.9); POTASSIUM 3.1 mmol/L (3.5-5.1); TOTAL PROTEIN, SERUM 4.1 g/dL (6.4-8.2)
[2021-06-16 08:00] VITALS: BP 146/89
[2021-06-16 08:05] LABS: BAND % (MANUAL) 1 % (0.0-5.0); LYMPHOCYTES % (MANUAL) 17 % (16-48); MONOCYTES % (MANUAL) 7 % (0-11.0); NEUTROPHILS % (MANUAL) 75 (42-76)
[2021-06-16] MEDS: LANOLIN/MIN OIL/PETROLAT,WHT 3.5 GM TUBE EACHEYE SCH ×2 (08:40→16:03)
[2021-06-16] MEDS: MORPHINE SULFATE INJ 2 MG/ML DISP.SYRIN IV PRN ×3 (09:06→20:17)
--- NOTE | 2021-06-16 09:06 | NUR ---
RN NOTE - PAIN PT C/O ACHING PAIN IN BILATERAL LEGS, RATED 10/10 ON 0-10 PAIN SCALE. VSS. PER PT REQUEST, ADMINISTERED MORPHINE 2MG IV Q4H PRN FOR PAIN. WILL CONTINUE TO MONITOR PT.
--- NOTE | 2021-06-16 11:59 | NUR ---
RN NOTE RECEIVED LAB VALUE FOR CK-MB 8.6. LAB VALUE REPORTED BY SELINA. READ BACK PROVIDED. CHARGE NURSE WILLIAM AND DR LYNN AWARE. AWAITING ORDERS. WILL CONTINUE TO MONITOR.
[2021-06-16] MEDS: INSULIN REGULAR, HUMAN 100 UNIT/ML 3 ML VIAL SQ PRN ×3 (12:19→22:39)
[2021-06-16] MEDS: ESCITALOPRAM OXALATE (10 MG) 10 MG TABLET PO SCH (12:41)
--- NOTE | 2021-06-16 15:00 | NUR ---
RN NOTE INFORMED DR. LYNN THAT PT'S SISTER WOULD LIKE TO SPEAK WITH HIM REGARDING PLAN OF CARE AND PROVIDED HIM WITH HER CONTACT NUMBER ([phone]).
[2021-06-16 16:00] VITALS: BP 141/85
--- NOTE | 2021-06-16 16:00 | NUR ---
RN NOTE PT REFUSED VANCO IV AT THIS TIME. PT EDUCATION GIVEN ON RISKS AND BENEFITS. PT VERBALIZED UNDERSTANDING AND CONTINUES TO REFUSE. WILL CONTINUE TO MONITOR PT.
[2021-06-16] MEDS: LORAZEPAM 1 MG TABLET PO PRN (16:20)
--- NOTE | 2021-06-16 16:20 | NUR ---
RN NOTE - ANXIETY PT C/O FEELING ANXIOUS. PER PT REQUEST, ADMINISTERED ATIVAN PO 2MG PO Q8H PRN FOR ANXIETY. WILL CONTINUE TO MONITOR PT.
--- NOTE | 2021-06-16 18:34 | NUR ---
MS RN CLOSING NOTE PT IS AWAKE IN BED. A/O X4. PT IS STABLE ON ROOM AIR WITH NO SOB OR S/S OF RESPIRATORY DISTRESS NOTED. 1:1 SITTER AT BEDSIDE FOR SAFETY. PT HAS NO S/O PAIN OR DISCOMFORT AT THIS TIME. IV ACCESS IN MICHAEL PICC, INTACT AND PATENT. PT NOTED WITH RIGHT FEMORAL HD CATH INTACT. PT DENIED SI/HI THROUGHOUT SHIFT. ALL NEEDS HAVE BEEN MET. SAFETY PRECAUTIONS MAINTAINED AT ALL TIMES. BED IN LOWEST LOCKED POSITION, HOB ELEVATED, SIDE RAILS UP X2. CALL LIGHT AND TABLE WITHIN REACH. WILL ENDORSE TO ONCOMING NURSE FOR DOROTHY.
[2021-06-16 20:00] VITALS: BP 115/84
[2021-06-17] MEDS: TOBRAMYCIN OPHTH 5ML 5 ML BOTTLE LEFTEYE SCH ×6 (03:22→23:05)
[2021-06-17] MEDS: PIPERACILLIN /TAZOBACTAM 2.25 G in IV D5W 50 ML IV SCH ×3 (05:20→17:04)
[2021-06-17 06:49] LABS: BASOPHILS # (AUTO) 0.1 K/uL (0.0-0.2); BASOPHILS % (AUTO) 0.4 % (0.0-2.0); EOSINOPHILS % (AUTO) 2.2 % (0.0-6.0); HEMATOCRIT 25 % (33-45); HEMOGLOBIN 8.4 g/dL (11.5-14.8); LYMPHOCYTES # (AUTO) 4.9 K/uL (0.8-4.8); LYMPHOCYTES % (AUTO) 12.9 % (20.0-44.0); MEAN CORPUSCULAR HGB CONC 34 g/dl (31.0-36.0); MEAN CORPUSCULAR VOLUME 84 fL (82-100); MONOCYTES % (AUTO) 5.4 % (2.0-12.0); NEUTROPHILS # (AUTO) 29.7 K/uL (1.8-8.9); NEUTROPHILS % (AUTO) 79.1 % (43.0-81.0); PLATELET COUNT (AUTO) 107 K/uL (150-450); RED BLOOD CELL COUNT(AUTO) 2.93 MIL/uL (4.0-5.2)
[2021-06-17 06:53] LABS: ALBUMIN 1.6 g/dL (3.4-5.0); BILIRUBIN,TOTAL 0.6 mg/dL (0.2-1.0); CALCIUM, SERUM 7.6 mg/dL (8.5-10.1); CREATININE 6.5 mg/dL (0.6-1.3); MAGNESIUM 1.9 mg/dL (1.8-2.4); PHOSPHORUS 4.4 mg/dL (2.5-4.9); POTASSIUM 2.9 mmol/L (3.5-5.1); TOTAL PROTEIN, SERUM 3.8 g/dL (6.4-8.2); WHITE BLOOD COUNT (AUTO) 37.6 K/uL (4.3-11.0)
[2021-06-17] MEDS: BLOOD SUGAR DIAGNOSTIC 1 EACH STRIP IN SCH ×4 (07:15→21:39)
[2021-06-17] MEDS: INSULIN REGULAR, HUMAN 100 UNIT/ML 3 ML VIAL SQ PRN (07:15)
--- NOTE | 2021-06-17 07:15 | NUR ---
ms rn note blood sugar 111. no coverage given
[2021-06-17 08:00] VITALS: BP 143/82
[2021-06-17 08:02] LABS: BAND % (MANUAL) 3 % (0.0-5.0); EOSINOPHILS % (MANUAL) 1 % (0-4); LYMPHOCYTES % (MANUAL) 14 % (16-48); MONOCYTES % (MANUAL) 6 % (0-11.0); MYELOCYTES % 1 % (0-0); NEUTROPHILS % (MANUAL) 75 (42-76)
[2021-06-17] MEDS: LANOLIN/MIN OIL/PETROLAT,WHT 3.5 GM TUBE EACHEYE SCH ×2 (08:02→16:09)
[2021-06-17] MEDS: ESCITALOPRAM OXALATE (10 MG) 10 MG TABLET PO SCH (08:17)
[2021-06-17] MEDS: LORAZEPAM 1 MG TABLET PO PRN ×2 (09:28→17:44)
--- NOTE | 2021-06-17 09:28 | NUR ---
RN NOTE - ANXIETY PT C/O SEVERE ANXIETY. PER PT REQUEST, ADMINISTERED ATIVAN PO 2MG PO Q8H PRN PER ORDER. WILL CONTINUE TO MONITOR PT.
[2021-06-17] MEDS ORDERED: ALBUMIN 25% 25 GM in PREMIX 1 EA IV PRN (10:30)
[2021-06-17] MEDS ORDERED: POTASSIUM CHLORIDE 20 MEQ TAB.PRT.SR PO ONE (10:30)
--- NOTE | 2021-06-17 10:33 | NUR ---
PT'S POTASSIUM 2.9. RECEIVED ORDERS FROM DR LYNN TO ADMINISTER KCL 40 MEQ PO ONCE. ORDERS READ BACK AND CARRIED OUT. WILL CONTINUE TO MONITOR.
--- NOTE | 2021-06-17 12:00 | NUR ---
HD TX ENDED AT THIS TIME. 3L OUT. PT IS IN STABLE CONDITION WITH NO COMPLICATIONS NOTED. WILL CONTINUE TO MONITOR PT.
[2021-06-17 16:00] VITALS: BP 143/73
--- NOTE | 2021-06-17 16:30 | NUR ---
SS note: SS consult completed & written by Nallely MADRIGAL provided pt. with IOP resources for follow up upon discharge when hold expires. IOP resources provided include: [facility] [address], [place], [place] [phone] [facility] [address] [facility] [address], [place], [place] [address] [facility] [address] [place], [place] [phone] Pt. expressed understanding and stated she would consider IOP. Pt. did not want referral at this time.
--- NOTE | 2021-06-17 18:27 | NUR ---
MS RN CLOSING NOTE PT IS AWAKE IN BED. A/O X4. PT IS STABLE ON ROOM AIR WITH NO SOB OR S/S OF RESPIRATORY DISTRESS NOTED. 1:1 SITTER AT BEDSIDE FOR SAFETY. PT HAS NO S/O PAIN OR DISCOMFORT AT THIS TIME. IV ACCESS IN MICHAEL PICC, INTACT AND PATENT. PT NOTED WITH RIGHT FEMORAL HD CATH INTACT. PT DENIES SI/HI AT THIS TIME. ALL NEEDS HAVE BEEN MET. SAFETY PRECAUTIONS MAINTAINED AT ALL TIMES. BED IN LOWEST LOCKED POSITION, HOB ELEVATED, SIDE RAILS UP X2. CALL LIGHT AND TABLE WITHIN REACH. WILL ENDORSE TO ONCOMING NURSE FOR DOROTHY.
[2021-06-17] MEDS: MORPHINE SULFATE INJ 2 MG/ML DISP.SYRIN IV PRN (19:44)
[2021-06-17 20:00] VITALS: BP 118/70
--- NOTE | 2021-06-17 20:00 | NUR ---
MS RN OPENING NOTE PATIENT IS AWAKE IN BED, A/O X4, PT ABLE TO MAKE NEEDS KNOWN. PT STABLE ON ROOM AIR, NO S/S OF RESPIRATORY DISTRESS OR SOB NOTED. SITTER PRESENT AT BEDSIDE FOR SAFETY. PT REPORTING 8/10 PAIN IN BILATERAL LEGS. MICHAEL PICC LINE, INTACT AND PATENT, SALINE LOCKED. PATIENT'S RIGHT FEMORAL HD CATH INTACT. PT DENIES SI/HI AT THIS TIME. PATIENT'S TEMPERATURE 100.2 DEGREES, COOLING MEASURES IMPLEMENTED, BLANKETS REMOVED, ICE PACK AND COOL TOWELS PLACED ON PATIENT. SAFETY PRECAUTIONS IN PLACE: BED LOCKED IN LOW POSITION, HOB ELEVATED, SIDE RAILS UP X2, CALL LIGHT WITHIN REACH. WILL CONTINUE TO MONITOR PATIENT
[2021-06-17] MEDS: CIPROFLOXACIN HCL 0.3% 5 ML BOTTLE LEFTEYE SCH (21:08)
--- NOTE | 2021-06-17 21:45 | NUR ---
MS RN NOTE REASSESSED PATIENT'S TEMPERATURE - NOW 98.8 DEGREES. WILL CONTINUE TO MONITOR PATIENT
[2021-06-18] MEDS: PIPERACILLIN /TAZOBACTAM 2.25 G in IV D5W 50 ML IV SCH ×2 (00:09→06:23)
[2021-06-18] MEDS: MORPHINE SULFATE INJ 2 MG/ML DISP.SYRIN IV PRN ×2 (00:09→17:01)
[2021-06-18] MEDS: TOBRAMYCIN OPHTH 5ML 5 ML BOTTLE LEFTEYE SCH ×6 (03:22→23:22)
[2021-06-18] MEDS: LORAZEPAM 1 MG TABLET PO PRN ×4 (05:32→22:10)
[2021-06-18 06:19] LABS: BASOPHILS # (AUTO) 0.1 K/uL (0.0-0.2); BASOPHILS % (AUTO) 0.3 % (0.0-2.0); EOSINOPHILS % (AUTO) 1.2 % (0.0-6.0); HEMATOCRIT 21 % (33-45); LYMPHOCYTES # (AUTO) 3.9 K/uL (0.8-4.8); LYMPHOCYTES % (AUTO) 10.7 % (20.0-44.0); MEAN CORPUSCULAR HGB CONC 33 g/dl (31.0-36.0); MEAN CORPUSCULAR VOLUME 86 fL (82-100); MONOCYTES # (AUTO) 1.8 K/uL (0.1-1.30); MONOCYTES % (AUTO) 4.9 % (2.0-12.0); NEUTROPHILS # (AUTO) 30.4 K/uL (1.8-8.9); NEUTROPHILS % (AUTO) 82.9 % (43.0-81.0); PLATELET COUNT (AUTO) 152 K/uL (150-450); RED BLOOD CELL COUNT(AUTO) 2.48 MIL/uL (4.0-5.2)
[2021-06-18 06:49] LABS: WHITE BLOOD COUNT (AUTO) 36.6 K/uL (4.3-11.0)
[2021-06-18 06:51] LABS: ALBUMIN 1.9 g/dL (3.4-5.0); BILIRUBIN,TOTAL 0.6 mg/dL (0.2-1.0); CALCIUM, SERUM 7.8 mg/dL (8.5-10.1); CREATININE 5.2 mg/dL (0.6-1.3); MAGNESIUM 2.1 mg/dL (1.8-2.4); POTASSIUM 3.6 mmol/L (3.5-5.1); TOTAL PROTEIN, SERUM 3.9 g/dL (6.4-8.2)
[2021-06-18] MEDS: BLOOD SUGAR DIAGNOSTIC 1 EACH STRIP IN SCH ×4 (06:56→22:17)
--- NOTE | 2021-06-18 07:24 | NUR ---
MS RN CLOSING NOTE PATIENT AWAKE IN BED, ALERT/ORIENTED X 4. NO SIGNIFICANT CHANGES THE REST OF THE SHIFT. PATIENT STABLE ON RA, NO S/S OF DISTRESS OR SOB NOTED, BREATHING EVEN AND UNLABORED. MICHAEL PICC LINE AND RIGHT FEMORAL HD CATH INTACT. MEDICATIONS GIVEN ORDERED, PT NEEDS MET THROUGHOUT SHIFT. SAFETY MEASURES IN PLACE: CALL LIGHT WITHIN REACH, SIDE RAILS UP X 2, BED LOCKED IN LOW POSITION, SITTER AT BEDSIDE. LAB CALLED WITH CRITICAL VALUES FOR WBC = 36.6 AND HBG = 7.0. ENDORSED TO DAY SHIFT NURSE FOR CONTINUITY OF CARE
--- NOTE | 2021-06-18 07:46 | NUR ---
RN OPENING NOTES. PATIENT IS AWAKE IN BED, A/O X4. NO PAIN NOTED AT THIS TIME. NO S/S OF RESPIRATORY DISTRESS NOTED. PATIENT VERBALIZED SHE WANTS TO GO HOME.NO SOB NOTED. SITTER PRESENT AT BEDSIDE FOR SAFETY. MICHAEL PICC LINE, INTACT AND PATENT, SALINE LOCKED.NO SWELLING , REDNESS OR DISCOMFORT NOTED AT THE SITE. CATHETER IN PLACE. PATIENT ANURIC . LEFT EYE SEMI OPEN. SAFETY PRECAUTIONS IN PLACE: BED LOCKED IN LOW POSITION, HOB ELEVATED, SIDE RAILS UP X2, CALL LIGHT WITHIN REACH. WILL CONTINUE TO MONITOR .
[2021-06-18] MEDS: LANOLIN/MIN OIL/PETROLAT,WHT 3.5 GM TUBE EACHEYE SCH ×2 (08:37→17:03)
[2021-06-18] MEDS: CIPROFLOXACIN HCL 0.3% 5 ML BOTTLE LEFTEYE SCH ×2 (08:39→17:02)
[2021-06-18] MEDS: ESCITALOPRAM OXALATE (10 MG) 10 MG TABLET PO SCH (08:42)
--- NOTE | 2021-06-18 08:43 | NUR ---
MS RN NOTE PATIENT REFUSED 0900 LEXAPRO. EDUCATED PATIENT ON IMPORTANCE OF TAKING MEDICATION. PATIENT STILL REFUSED. WILL NOTIFY .
[2021-06-18 10:34] LABS: EOSINOPHILS % (MANUAL) 2 % (0-4); LYMPHOCYTES % (MANUAL) 10 % (16-48); MONOCYTES % (MANUAL) 5 % (0-11.0); NEUTROPHILS % (MANUAL) 83 (42-76)
[2021-06-18] MEDS: MEROPENEM 500 MG in IV NS 0.9% 50 ML IV SCH ×2 (11:53→23:22)
[2021-06-18 13:28] VITALS: BP 137/75
[2021-06-18 13:54] VITALS: BP 137/83
[2021-06-18 14:24] VITALS: BP 140/79
[2021-06-18 15:31] VITALS: BP 144/81
[2021-06-18 16:20] VITALS: BP 133/82
[2021-06-18] MEDS: INSULIN REGULAR, HUMAN 100 UNIT/ML 3 ML VIAL SQ PRN (17:06)
--- NOTE | 2021-06-18 18:32 | NUR ---
MS RN CLOSING NOTES. PATIENT IS AWAKE IN BED, A/O X4. NO PAIN NOTED AT THIS TIME. NO S/S OF RESPIRATORY DISTRESS NOTED. NO SOB NOTED. SITTER PRESENT AT BEDSIDE FOR SAFETY. MICHAEL PICC LINE, INTACT AND PATENT, SALINE LOCKED.NO SWELLING , REDNESS OR DISCOMFORT NOTED AT THE SITE. CATHETER IN PLACE. PATIENT. 50 ML OF URINE OUTPUT. LEFT EYE SEMI OPEN. KEPT THE EYE CLEAN AND DRY ALL THE TIME. ALL MEDS GIVEN PER ORDER. SAFETY PRECAUTIONS IN PLACE , BED LOCKED IN LOW POSITION, HOB ELEVATED, SIDE RAILS UP X2, CALL LIGHT WITHIN REACH. WILL ENDORSE TO THE ONCOMING SHIFT FOR DOROTHY.
--- NOTE | 2021-06-18 19:30 | NUR ---
MS RN OPENING NOTE PATIENT AWAKE IN BED, A/O X4, PT ABLE TO MAKE NEEDS KNOWN. PT STABLE ON ROOM AIR, NO S/S OF RESPIRATORY DISTRESS OR SOB NOTED. SITTER PRESENT AT BEDSIDE FOR SAFETY. MICHAEL PICC LINE, INTACT AND PATENT. RIGHT FEMORAL HD CATH INTACT. MOHAMUD CATHETER INTACT. SAFETY PRECAUTIONS IN PLACE: BED LOCKED IN LOW POSITION, HOB ELEVATED, SIDE RAILS UP X2, CALL LIGHT WITHIN REACH, BED ALARM ON. WILL CONTINUE TO MONITOR PATIENT
[2021-06-18 20:00] VITALS: BP_SYST 132; BP_SYST 133; BP_DIAS 82; BP_DIAS 99
--- NOTE | 2021-06-18 20:20 | NUR ---
MS RN NOTE STOOL SAMPLE FOR BLOOD OCCULT LAB TEST COLLECTED AND PLACED IN FRIDGE
--- NOTE | 2021-06-18 20:37 | NUR ---
MS RN NOTE PATIENT REPORTING PINS AND NEEDLES TYPE PAIN IN BILATERAL LEGS, STATED MORPHINE ISN'T VERY EFFECTIVE WHEN SHE'S TAKEN IT. ALSO STATED SHE'S BEEN HAVING TROUBLE SLEEPING AND DIDN'T SLEEP LAST NIGHT OR ALL DAY TODAY. NOTIFIED DR. CAITIE MCCRAY REGARDING THESE CONCERNS, NEW ORDER FOR SEROQUEL 50 MG PO HS PRN. ORDER READ BACK AND VERIFIED. ORDER CARRIED OUT
--- NOTE | 2021-06-18 22:30 | NUR ---
MS RN NOTES PATIENT SEEN BY DR. CHILDERS AT THE BEDSIDE. PER LESLIE DEL TORO HOLD ON PATIENT
[2021-06-19] MEDS: TOBRAMYCIN OPHTH 5ML 5 ML BOTTLE LEFTEYE SCH ×6 (03:04→23:25)
[2021-06-19 06:14] LABS: BASOPHILS # (AUTO) 0.1 K/uL (0.0-0.2); BASOPHILS % (AUTO) 0.2 % (0.0-2.0); HEMATOCRIT 29 % (33-45); HEMOGLOBIN 9.7 g/dL (11.5-14.8); LYMPHOCYTES # (AUTO) 3.2 K/uL (0.8-4.8); LYMPHOCYTES % (AUTO) 9.5 % (20.0-44.0); MEAN CORPUSCULAR HGB CONC 33 g/dl (31.0-36.0); MEAN CORPUSCULAR VOLUME 88 fL (82-100); MONOCYTES # (AUTO) 1.6 K/uL (0.1-1.30); MONOCYTES % (AUTO) 4.6 % (2.0-12.0); NEUTROPHILS # (AUTO) 28.7 K/uL (1.8-8.9); NEUTROPHILS % (AUTO) 83.7 % (43.0-81.0); PLATELET COUNT (AUTO) 146 K/uL (150-450); RED BLOOD CELL COUNT(AUTO) 3.32 MIL/uL (4.0-5.2)
--- NOTE | 2021-06-19 06:22 | NUR ---
MS RN CLOSING NOTE PATIENT AWAKE IN BED, ALERT/ORIENTED X 4. NO SIGNIFICANT CHANGES THROUGHOUT THE SHIFT, PT SLEPT WELL THROUGHOUT THE NIGHT. PATIENT STABLE ON RA, NO S/S OF DISTRESS OR SOB NOTED, BREATHING EVEN AND UNLABORED. MICHAEL PICC LINE AND RIGHT FEMORAL HD CATH INTACT. MOHAMUD CATH IN PLACE. MEDICATIONS GIVEN ORDERED, PT NEEDS MET THROUGHOUT SHIFT. SAFETY MEASURES IN PLACE: CALL LIGHT WITHIN REACH, SIDE RAILS UP X 3, BED LOCKED IN LOW POSITION, SITTER AT BEDSIDE. WILL ENDORSE TO DAY SHIFT NURSE FOR CONTINUITY OF CARE
[2021-06-19 06:50] LABS: WHITE BLOOD COUNT (AUTO) 34.3 K/uL (4.3-11.0)
--- NOTE | 2021-06-19 06:51 | NUR ---
MS RN NOTE LAB CALLED WITH CRITICAL LAB: WBC = 34.3. WILL ENDORSE TO DAY SHIFT NURSE
[2021-06-19 07:13] LABS: ALBUMIN 1.7 g/dL (3.4-5.0); BILIRUBIN,TOTAL 0.6 mg/dL (0.2-1.0); CALCIUM, SERUM 7.5 mg/dL (8.5-10.1); CREATININE 6.5 mg/dL (0.6-1.3); POTASSIUM 3.4 mmol/L (3.5-5.1); TOTAL PROTEIN, SERUM 3.7 g/dL (6.4-8.2)
--- NOTE | 2021-06-19 07:24 | NUR ---
MS RN OPENING NOTES RECEIVED PATIENT AWAKE IN BED, ALERT AND ORIENTED X 4. NO S/S OF DISTRESSED NOTED. BREATHING IS EVEN AND UNLABORED. IV ACCESS MICHAEL PICC PATENT AND INTACT. MOHAMUD CATHETER PATENT, INTACT AND DRAINING WELL. SAFETY MEASURES IN PLACE WITH BED LOCKED AT LOWEST POSITION AND SIDE RAILS UP X 2. CALL LIGHT WITHIN REACH. WILL CONTINUE TO MONITOR THROUGHOUT SHIFT.
[2021-06-19] MEDS: BLOOD SUGAR DIAGNOSTIC 1 EACH STRIP IN SCH ×4 (07:31→22:44)
[2021-06-19 08:00] VITALS: BP 149/90
[2021-06-19] MEDS: LANOLIN/MIN OIL/PETROLAT,WHT 3.5 GM TUBE EACHEYE SCH ×2 (08:09→16:16)
[2021-06-19] MEDS: ESCITALOPRAM OXALATE (10 MG) 10 MG TABLET PO SCH ×2 (08:09→09:00)
[2021-06-19] MEDS: CIPROFLOXACIN HCL 0.3% 5 ML BOTTLE LEFTEYE SCH ×2 (08:09→16:11)
[2021-06-19 08:23] LABS: OCCULT BLOOD STOOL NEGATIVE (NEGATIVE)
--- NOTE | 2021-06-19 09:20 | NUR ---
MS RN NOTES PT WAS SEEN BY BIAS BINDING CUTTER, DR. MESSINA AT BEDSIDE WITH NEW ORDER FOR ATIVAN 1MG IV PUSH WITH HEMODIALYSIS. ORDERS READ BACK AND CARRIED OUT.
--- NOTE | 2021-06-19 09:20 | NUR ---
MS RN NOTES PT REFUSED LEXAPRO. MADE AWARE.
[2021-06-19] MEDS: MEROPENEM 500 MG in IV NS 0.9% 50 ML IV SCH ×2 (10:25→23:25)
[2021-06-19 13:54] LABS: BASOPHILS % (MANUAL) 1 % (0.0-2.0); EOSINOPHILS % (MANUAL) 4 % (0-4); LYMPHOCYTES % (MANUAL) 8 % (16-48); MONOCYTES % (MANUAL) 6 % (0-11.0); NEUTROPHILS % (MANUAL) 81 (42-76)
--- NOTE | 2021-06-19 14:31 | NUR ---
MS RN NOTES RAJ LYNN NP MADE AWARE OF LAB VALUES WITH NO NEW ORDERS.
[2021-06-19 16:00] VITALS: BP 136/83
[2021-06-19] MEDS: LORAZEPAM 1 MG TABLET PO PRN (16:11)
[2021-06-19] MEDS: INSULIN REGULAR, HUMAN 100 UNIT/ML 3 ML VIAL SQ PRN ×2 (16:40→22:49)
[2021-06-19] MEDS: MORPHINE SULFATE INJ 2 MG/ML DISP.SYRIN IV PRN (16:41)
--- NOTE | 2021-06-19 18:46 | NUR ---
MS RN CLOSING NOTES PATIENT AWAKE IN BED,RESTING COMFORTABLY. NO S/S OF DISTRESSED NOTED. BREATHING IS EVEN AND UNLABORED. IV ACCESS MICHAEL PICC PATENT AND INTACT. MOHAMUD CATHETER PATENT, INTACT AND DRAINING WELL. SAFETY MEASURES IN PLACE WITH BED LOCKED AT LOWEST POSITION AND SIDE RAILS UP X 2. CALL LIGHT WITHIN REACH. WILL ALL NEEDS MET THROUGHOUT SHIFT. WILL ENDORSE TO ONCOMING SHIFT.
[2021-06-19] MEDS: LORAZEPAM INJ 2 MG/ML VIAL IV PRN (18:51)
--- NOTE | 2021-06-19 19:40 | NUR ---
MS RN OPENING NOTE PATIENT AWAKE IN BED, A/O X4, PT ABLE TO MAKE NEEDS KNOWN. PT STABLE ON ROOM AIR, NO S/S OF RESPIRATORY DISTRESS OR SOB NOTED. MICHAEL PICC LINE, INTACT AND PATENT. RIGHT FEMORAL HD CATH INTACT. HD NURSE CURRENTLY SETTING UP FOR HD ON PATIENT. MOHAMUD CATHETER INTACT. SAFETY PRECAUTIONS IN PLACE: BED LOCKED IN LOW POSITION, HOB ELEVATED, SIDE RAILS UP X3, CALL LIGHT WITHIN REACH, BED ALARM ON. WILL CONTINUE TO MONITOR PATIENT
[2021-06-19 20:06] VITALS: BP 142/91
--- NOTE | 2021-06-19 22:00 | NUR ---
MS RN NOTE HD FINISHED, 3 L OUT. DID NOT ADMINISTER VANCO AFTER HD VANCO TROUGH THIS AM WAS 21
[2021-06-20] MEDS: LORAZEPAM 1 MG TABLET PO PRN ×2 (01:21→15:33)
[2021-06-20] MEDS: TOBRAMYCIN OPHTH 5ML 5 ML BOTTLE LEFTEYE SCH ×6 (04:12→22:27)
[2021-06-20 06:31] LABS: BASOPHILS # (AUTO) 0.1 K/uL (0.0-0.2); BASOPHILS % (AUTO) 0.3 % (0.0-2.0); EOSINOPHILS % (AUTO) 0.4 % (0.0-6.0); HEMATOCRIT 24 % (33-45); HEMOGLOBIN 8.2 g/dL (11.5-14.8); LYMPHOCYTES # (AUTO) 2.4 K/uL (0.8-4.8); MEAN CORPUSCULAR HGB CONC 34 g/dl (31.0-36.0); MEAN CORPUSCULAR VOLUME 88 fL (82-100); MONOCYTES # (AUTO) 1.2 K/uL (0.1-1.30); MONOCYTES % (AUTO) 3.9 % (2.0-12.0); NEUTROPHILS # (AUTO) 26.5 K/uL (1.8-8.9); NEUTROPHILS % (AUTO) 87.4 % (43.0-81.0); PLATELET COUNT (AUTO) 166 K/uL (150-450); RED BLOOD CELL COUNT(AUTO) 2.79 MIL/uL (4.0-5.2)
[2021-06-20] MEDS: BLOOD SUGAR DIAGNOSTIC 1 EACH STRIP IN SCH ×4 (07:00→22:14)
[2021-06-20 07:03] LABS: BILIRUBIN,TOTAL 0.5 mg/dL (0.2-1.0); CALCIUM, SERUM 7.5 mg/dL (8.5-10.1); MAGNESIUM 2.1 mg/dL (1.8-2.4); PHOSPHORUS 3.8 mg/dL (2.5-4.9); POTASSIUM 3.3 mmol/L (3.5-5.1)
--- NOTE | 2021-06-20 07:18 | NUR ---
MS RN CLOSING NOTE PATIENT AWAKE IN BED, ALERT/ORIENTED X 4. NO SIGNIFICANT CHANGES THROUGHOUT THE SHIFT, PT SLEPT WELL THROUGHOUT THE NIGHT. PATIENT STABLE ON RA, NO S/S OF DISTRESS OR SOB NOTED, BREATHING EVEN AND UNLABORED. MICHAEL PICC LINE AND RIGHT FEMORAL HD CATH INTACT. MOHAMUD CATH IN PLACE. MEDICATIONS GIVEN ORDERED, PT NEEDS MET THROUGHOUT SHIFT. SAFETY MEASURES IN PLACE: CALL LIGHT WITHIN REACH, SIDE RAILS UP X 3, BED LOCKED IN LOW POSITION, BED ALARM ON. ENDORSED TO DAY SHIFT NURSE FOR CONTINUITY OF CARE
[2021-06-20 07:30] LABS: ALBUMIN 1.8 g/dL (3.4-5.0)
[2021-06-20 07:42] LABS: WHITE BLOOD COUNT (AUTO) 30.3 K/uL (4.3-11.0)
--- NOTE | 2021-06-20 07:55 | NUR ---
MSRN NOTES: RECEIVED PATIENT IN BED AWAKE,ALERT/ORIENTED X4.PICC LINE ON THE MICHAEL WITH 3 LUMEN AND HD CATH ON THE RIGHT FEMORAL AREA.WITH INDWELLING MOHAMUD CATH IN PLACE(ANURIC).BLE'S SWOLLEN WITH PATCHES OF DRY SCABS.SACRAL AREA DTI WITH MEPILEX IN PLACE.DENIES PAIN AND DISCOMFORT AT THIS TIME.REMAINS ON IV ATB MERREM Q12 HRS. FOR ELEVATED WBC.WE WILL CONTINUE TO MONITOR
[2021-06-20 08:00] VITALS: BP 129/74
[2021-06-20 08:06] LABS: *ANA ANTI-CENTROMERE B AB <0.2 AI (0.0-0.9); *ANA ANTI-DNA(DS) AB, QN <1 IU/mL (0-9); *ANA ANTI-JO-1 <0.2 AI (0.0-0.9); *ANA ANTICHROMATIN ANTIBODY <0.2 AI (0.0-0.9); *ANA RNP ANTIBODIES <0.2 AI (0.0-0.9); *ANA SJOGREN'S ANTI-SS-A <0.2 AI (0.0-0.9); *ANA SJOGREN'S ANTI-SS-B <0.2 AI (0.0-0.9); *ANAANTI-SCLERODERMA-70 AB <0.2 AI (0.0-0.9); *ANASMITH AB <0.2 AI (0.0-0.9)
[2021-06-20] MEDS: CIPROFLOXACIN HCL 0.3% 5 ML BOTTLE LEFTEYE SCH ×2 (08:24→16:37)
[2021-06-20] MEDS: LANOLIN/MIN OIL/PETROLAT,WHT 3.5 GM TUBE EACHEYE SCH ×2 (08:25→16:37)
[2021-06-20] MEDS: ESCITALOPRAM OXALATE (10 MG) 10 MG TABLET PO SCH (08:29)
--- NOTE | 2021-06-20 09:00 | NUR ---
MS RN NOTES: PATIENT REFUSED TO TAKE THE LEXAPRO 10MG THIS MORNING,DR MONTILLA MADE AWARE.
[2021-06-20 09:29] LABS: LYMPHOCYTES % (MANUAL) 3 % (16-48); MONOCYTES % (MANUAL) 3 % (0-11.0); MYELOCYTES % 2 % (0-0); NEUTROPHILS % (MANUAL) 92 (42-76)
--- NOTE | 2021-06-20 09:53 | NUR ---
MS RN NOTES; DR MESSINA ORDERED NPO,NOTED AND CARRIED OUT
[2021-06-20] MEDS ORDERED: HEPARIN SODIUM, PORCINE 1,000 UNIT/ML VIAL ONE ×2 (11:00→11:05)
[2021-06-20] MEDS ORDERED: IOHEXOL 240MG/ML 0 ML IV ONE (11:00)
[2021-06-20] MEDS ORDERED: LIDOCAINE 1% INJ 50 ML MDV IJ ONE (11:00)
--- NOTE | 2021-06-20 15:27 | NUR ---
ROHAN stopped by to follow-up with pt. regarding IOP. Pt.s RN mentioned that pt. will be getting a procedure done today. Pt. is feeling anxious regarding procedure, pt.s RN mentioned to come back tomorrow. No date for discharge currently.
[2021-06-20 16:00] VITALS: BP 141/83
--- NOTE | 2021-06-20 16:46 | NUR ---
MS/RN NOTES DR. MESSINA ORDER RENAL HIGH AND NPO POST MIDNIGHT NOTED AND CARRIED OUT.
--- NOTE | 2021-06-20 18:33 | NUR ---
MS RN CLOSING NOTES: PATIENT IN BED, ALERT/ORIENTED X4 AND NOT IN DISTRESS.NOTED WITH EPISODES OF ANXIETY WITH MEDICATION GIVEN ORDERED. PICC LINE ON THE MICHAEL WITH 3 LUMEN INTACT AND PATENT.SCHEDULED FOR TUNNEL CATHETER INSERTION TOMORROW WITH NPO ORDERED AFTER MIDNIGHT.CONTINUE ON BLOOD SUGAR CHECK AC MEALS AND HS,NO EPISODE OF HYPOGLYCEMIA. IV ATB DISCONTINUED ,FOR HD TOMORROW SCHEDULED.WITH INDWELLING MOHAMUD CATH(ANURIC).WILL CONTINUE TO MONITOR
[2021-06-20] MEDS: MORPHINE SULFATE INJ 2 MG/ML DISP.SYRIN IV PRN ×2 (19:04→19:13)
--- NOTE | 2021-06-20 19:15 | NUR ---
JAYCEE ms opening notes Received Pt from morning nurse. Pt is laying in bed comfortably watching TV. Pt is alert and orientedX4. Respiration is normal in room air. NO SOB. No S/S of distress noted. R femoral HD cath is intact. MICHAEL piccline is clean, intact and flushes well. Noted swollen on bilateral legs. Repositioning Pt for comfort. Snack is provided. Safety precautions is maintained. Bed at low position, brakes locked, side rails upX3 and call light is within reach. Primary nurse is closely monitor in the room. Will continue to monitor closely. Addendum: 06/20/21 at 2350 by EROS MATUTE RN Addition: Spencer cath is intact and draining yellow urine.
[2021-06-20 20:00] VITALS: BP 139/84
--- NOTE | 2021-06-20 20:28 | NUR ---
RN notes Called and spoke with Radiology Amber regarding CT chest WO contrast. Mentioned to Amber that Pt will have procedure tunnelled catherer insertion tomorrow. Amber informed they are very busy right now and will do it in am possible 0800 or sooner than that. Will continue to monitor.
[2021-06-20] MEDS: INSULIN REGULAR, HUMAN 100 UNIT/ML 3 ML VIAL SQ PRN (22:17)
[2021-06-20] MEDS: QUETIAPINE FUMARATE 25 MG TABLET PO PRN (22:22)
--- NOTE | 2021-06-20 23:15 | NUR ---
RN notes Pt's sister named Tello Keene ([phone]) called. Pt's sister requesting to have her name on Pt's chart. Notify and Confirmed with Pt and Pt said agree to add pt's sister name. Pt's sister also would like to speak with MD in AM. Will endorse to am nurse.
[2021-06-21] MEDS: TOBRAMYCIN OPHTH 5ML 5 ML BOTTLE LEFTEYE SCH ×6 (03:30→22:45)
[2021-06-21 06:19] LABS: BASOPHILS # (AUTO) 0.1 K/uL (0.0-0.2); BASOPHILS % (AUTO) 0.3 % (0.0-2.0); EOSINOPHILS % (AUTO) 1.9 % (0.0-6.0); HEMATOCRIT 23 % (33-45); HEMOGLOBIN 7.8 g/dL (11.5-14.8); LYMPHOCYTES # (AUTO) 2.6 K/uL (0.8-4.8); LYMPHOCYTES % (AUTO) 13.2 % (20.0-44.0); MEAN CORPUSCULAR HGB CONC 34 g/dl (31.0-36.0); MEAN CORPUSCULAR VOLUME 89 fL (82-100); MONOCYTES # (AUTO) 1.2 K/uL (0.1-1.30); MONOCYTES % (AUTO) 6.1 % (2.0-12.0); NEUTROPHILS # (AUTO) 15.4 K/uL (1.8-8.9); NEUTROPHILS % (AUTO) 78.5 % (43.0-81.0); PLATELET COUNT (AUTO) 206 K/uL (150-450); RED BLOOD CELL COUNT(AUTO) 2.59 MIL/uL (4.0-5.2); WHITE BLOOD COUNT (AUTO) 19.7 K/uL (4.3-11.0)
[2021-06-21] MEDS: BLOOD SUGAR DIAGNOSTIC 1 EACH STRIP IN SCH ×4 (06:37→22:03)
[2021-06-21] MEDS: INSULIN REGULAR, HUMAN 100 UNIT/ML 3 ML VIAL SQ PRN ×2 (06:38→22:04)
--- NOTE | 2021-06-21 06:40 | NUR ---
JAYCEE ms closing notes Pt is resting in bed comfortably. Pt is alert and orientedX4. Respiration is normal in room air. NO SOB. No S/S of distress noted. VS is stable. Routine meds were given as ordered. R femoral HD cath is intact. MICHAEL piccline is clean, intact and flushes well. Repositioning Pt for comfort. Kept Pt clean, dry and comfortable. All needs met and attended. Safety precautions is maintained. Bed at low position, brakes locked, side rails upX3 and call light is within reach. Will endorse to am nurse for DOROTHY. Addendum: 06/21/21 at 0644 by EROS MATUTE RN irving cath is intact and draining yellow urine 50 ml.
--- NOTE | 2021-06-21 07:34 | NUR ---
MS RN OPENING NOTES: RECEIVED PATIENT IN BED, ALERT/ORIENTED X4 AND NOT IN DISTRESS NOTED. BREATHING EVEN AND UNLABORED. PT. WITH PICC LINE ON THE MICHAEL WITH 3 LUMEN INTACT. PT. WITH RIGHT FEMORAL HD CATH, INTACT. NO SIGNS OF BLEEDING WITH CLEAN DRY DRESSING IN PLACE. PT. WITH INDWELLING MOHAMUD CATH(ANURIC).STILL ON NPO. PATIENT ON SAFETY PRECAUTIONS. BED ON LOWEST LOCKED POSITION. CALLIGHT AND BEDSUDE TABLE WITHIN EASY REACH. WILL CONTINUE TO MONITOR PT.
[2021-06-21 08:00] VITALS: BP 141/81
[2021-06-21] MEDS: LANOLIN/MIN OIL/PETROLAT,WHT 3.5 GM TUBE EACHEYE SCH ×2 (08:18→17:00)
[2021-06-21] MEDS: CIPROFLOXACIN HCL 0.3% 5 ML BOTTLE LEFTEYE SCH ×2 (08:24→17:22)
[2021-06-21] MEDS: ESCITALOPRAM OXALATE (10 MG) 10 MG TABLET PO SCH (08:25)
--- NOTE | 2021-06-21 08:29 | NUR ---
RN NOTES PATIENT REFUSED LEXAPRO MEDS. OPENED PILLS ALREADY, OFFERED X 3 BUT STILL REFUSED. EXPLAINED RISK AND BENEFITS
[2021-06-21 09:47] LABS: ALBUMIN 1.6 g/dL (3.4-5.0); BILIRUBIN,TOTAL 0.4 mg/dL (0.2-1.0); CALCIUM, SERUM 7.3 mg/dL (8.5-10.1); CREATININE 7.4 mg/dL (0.6-1.3); PHOSPHORUS 4.7 mg/dL (2.5-4.9); POTASSIUM 3.6 mmol/L (3.5-5.1); TOTAL PROTEIN, SERUM 3.8 g/dL (6.4-8.2)
--- NOTE | 2021-06-21 10:49 | NUR ---
PATIENT REFUSING, NURSE KAYLIN NOTIFIED
[2021-06-21 13:36] LABS: EOSINOPHILS % (MANUAL) 2 % (0-4); LYMPHOCYTES % (MANUAL) 12 % (16-48); MONOCYTES % (MANUAL) 6 % (0-11.0); NEUTROPHILS % (MANUAL) 80 (42-76)
[2021-06-21] MEDS: LORAZEPAM 1 MG TABLET PO PRN (14:04)
[2021-06-21] MEDS ORDERED: ALBUMIN 25% 25 GM in PREMIX 1 EA IV ONE (17:00)
--- NOTE | 2021-06-21 19:15 | NUR ---
RN ms opening notes Received Pt from morning nurse. Pt is sitting in bed eating dinner. Pt is alert and orientedX4. Respiration is normal in room air. NO SOB. No S/S of distress noted. R femoral HD cath is intact. MICHAEL piccline is clean, intact and flushes well. Pt had dialysis today with 4 L out. Repositioning Pt for comfort. Snack is provided. Safety precautions is maintained. Bed at low position, brakes locked, side rails upX3 and call light is within reach. Will continue to monitor closely.
--- NOTE | 2021-06-21 19:38 | NUR ---
RN ms notes Per am nurse, Pt has a procedure for Tunnel catherer insertion tomorrow. Pt is NPO by midnight. Ordered by Dr. Kate. Pt is aware and informed. Pt verbalized understanding.
[2021-06-21 20:00] VITALS: BP 125/74
[2021-06-21 20:03] VITALS: BP 125/74
--- NOTE | 2021-06-21 22:04 | NUR ---
RN ms notes Pt's blood sugar HS is 122. No coverage is given. Will continue to monitor.
[2021-06-21] MEDS: QUETIAPINE FUMARATE 25 MG TABLET PO PRN (22:07)
--- NOTE | 2021-06-21 23:00 | NUR ---
RN notes Pt is NPO for tunnelled catherer insertion in am. Pt is aware and verbalize understanding.
[2021-06-22] VITALS (7 sets, daily range): BP systolic 123–140; BP diastolic 62–86
[2021-06-22] MEDS: TOBRAMYCIN OPHTH 5ML 5 ML BOTTLE LEFTEYE SCH ×6 (02:26→23:07)
--- NOTE | 2021-06-22 05:33 | NUR ---
RN notes Pt refused to have blood draw at this time. Pt stated "come back later. Not now." Informed to president + publisher to come back later.
[2021-06-22] MEDS: BLOOD SUGAR DIAGNOSTIC 1 EACH STRIP IN SCH ×4 (06:30→21:42)
[2021-06-22] MEDS: INSULIN REGULAR, HUMAN 100 UNIT/ML 3 ML VIAL SQ PRN ×2 (06:31→21:42)
--- NOTE | 2021-06-22 06:44 | NUR ---
RN ms closing notes Pt is resting in bed comfortably. Pt is alert and orientedX4. Respiration is normal in room air. NO SOB. No S/S of distress noted. VS is stable. R femoral HD cath is intact. MICHAEL piccline is clean, intact and flushes well. Pt is NPO since midnight. Repositioning Pt for comfort. Routine meds were given as ordered. Kept Pt clean, dry and comfortable. Spencer cath is intact and draining yellow urine 60 ml. Safety precautions is maintained. Bed at low position, brakes locked, side rails upX3 and call light is within reach. Will endorse to am nurse for DOROTHY.
--- NOTE | 2021-06-22 07:18 | NUR ---
MS RN OPENING NOTES: RECEIVED PATIENT IN BED, ALERT/ORIENTED X3-4 AND NOT IN rRESPIRATORY DISTRESS NOTED. BREATHING EVEN AND UNLABORED. PT. WITH PICC LINE ON THE MICHAEL WITH 3 LUMEN INTACT. PT. WITH RIGHT FEMORAL HD CATH, INTACT. NO SIGNS OF BLEEDING WITH CLEAN DRY DRESSING IN PLACED. PT. WITH INDWELLING MOHAMUD CATH(ANURIC).STILL ON NPO FOR THE PROCEDURE . PATIENT ON SAFETY PRECAUTIONS. BED ON LOWEST LOCKED POSITION. CALL LIGHT AND BEDSIDE TABLE WITHIN EASY REACH. WILL CONTINUE TO MONITOR PT. ACCDGLY
[2021-06-22] MEDS: CIPROFLOXACIN HCL 0.3% 5 ML BOTTLE LEFTEYE SCH ×2 (08:46→17:27)
[2021-06-22] MEDS: ESCITALOPRAM OXALATE (10 MG) 10 MG TABLET PO SCH (08:47)
[2021-06-22] MEDS: LANOLIN/MIN OIL/PETROLAT,WHT 3.5 GM TUBE EACHEYE SCH ×2 (08:47→17:00)
--- NOTE | 2021-06-22 08:52 | NUR ---
RN NOTES PATIENT REFUSED BLOODWORKS THIS AM. PER PATIENT, STATED THAT " I AM TIRED, THEY ALWAYS GET BLOOD ON ME" EXPLAINED RISK AND BENEFITS WITH PT. UNDERSTANDING. WILL CONTINUE TO MONITOR
--- NOTE | 2021-06-22 10:30 | NUR ---
RN NOTES PATIENT WAS PICKED UP BY O.R STAFF C/O FAWAD AND PT. WAS ACCOMPANIED BY MOTHER.PT. IN STABLE CONDITION, VITALS SIGNS WITHIN NORMAL RANGE. PT. WITH PICC LINE AT [facility], NO BLEEDING NOTED WITH DRY DRESSING IN PLACED. PT. F.C, INTACT. REPORT GIVEN TO ESAU
[2021-06-22] MEDS ORDERED: LIDOCAINE 1% INJ 50 ML MDV IJ ONE (10:40)
[2021-06-22] MEDS ORDERED: BUPIVACAINE MPF 0.5% W/EPI INJ 30 ML VIAL ONE (10:40)
[2021-06-22] MEDS ORDERED: ANESTHESIA TRAY IN PYXIS 1 EA TRAY MC ONE (10:40)
[2021-06-22] MEDS ORDERED: FENTANYL PF 100MCG/2ML AMPUL ONE (10:55)
[2021-06-22] MEDS ORDERED: MIDAZOLAM HCL 2 MG/2ML VIAL ONE ×2 (10:55→12:13)
[2021-06-22] MEDS ORDERED: KETAMINE HCL (500MG/10ML) 50 MG/ML VIAL ONE (10:56)
[2021-06-22] MEDS ORDERED: HEPARIN SODIUM, PORCINE 1,000 UNIT/ML VIAL ONE (11:34)
--- NOTE | 2021-06-22 12:30 | NUR ---
RN MS NOTES PATIENT ARRIVED FROM [facility] ACCOMPANIED BY SECURITY SHIFT SUPERVISORJAYCEE LITTLE VIA BED. AWAKE, A/O X3. PT. IN NO APPARENT DISTRESS NOTED, BREATHING EVEN AND UNLABORED. NO COMPLAINS OF PAIN OR DISCOMFORT AT THIS TIME.PATIENT WITH NEW TUNNEL HD CATH PLACED ON RIGHT UPPER CHEST, NO BLEEDING NOTED WITH DRY DRESSING IN PLACED. RIGHT FEMORAL HD WAS REMOVED, NO S/SX OF BLEEDING AT THE SITE. STILL W/ F.C, INTACT AND PICC LINE AT MICHAEL. VITAL SIGNS TAKEN AND RECORDED.PLACED PATIENT IN COMFORTABLE POSITION. REPORTS RECEIVED FROM OR NURSE LITTLE. WILL CONTINUE TO MONITOR PT.
[2021-06-22] MEDS ORDERED: MORPHINE SULFATE INJ 2 MG/ML DISP.SYRIN IV ONE (16:30)
[2021-06-22] MEDS: MORPHINE SULFATE INJ 2 MG/ML DISP.SYRIN IV PRN (16:36)
[2021-06-22 16:44] LABS: BASOPHILS # (AUTO) 0.1 K/uL (0.0-0.2); BASOPHILS % (AUTO) 0.8 % (0.0-2.0); EOSINOPHILS % (AUTO) 1.4 % (0.0-6.0); HEMATOCRIT 21 % (33-45); HEMOGLOBIN 7.1 g/dL (11.5-14.8); LYMPHOCYTES # (AUTO) 1.9 K/uL (0.8-4.8); LYMPHOCYTES % (AUTO) 13.4 % (20.0-44.0); MEAN CORPUSCULAR HGB CONC 33 g/dl (31.0-36.0); MEAN CORPUSCULAR VOLUME 91 fL (82-100); MONOCYTES # (AUTO) 1.2 K/uL (0.1-1.30); MONOCYTES % (AUTO) 8.5 % (2.0-12.0); NEUTROPHILS # (AUTO) 10.9 K/uL (1.8-8.9); NEUTROPHILS % (AUTO) 75.9 % (43.0-81.0); PLATELET COUNT (AUTO) 249 K/uL (150-450); RED BLOOD CELL COUNT(AUTO) 2.36 MIL/uL (4.0-5.2); WHITE BLOOD COUNT (AUTO) 14.3 K/uL (4.3-11.0)
[2021-06-22 17:24] LABS: ALBUMIN 2.1 g/dL (3.4-5.0); BILIRUBIN,TOTAL 0.5 mg/dL (0.2-1.0); CALCIUM, SERUM 7.7 mg/dL (8.5-10.1); CREATININE 6.7 mg/dL (0.6-1.3); MAGNESIUM 2.1 mg/dL (1.8-2.4); PHOSPHORUS 4.4 mg/dL (2.5-4.9); POTASSIUM 3.2 mmol/L (3.5-5.1); TOTAL PROTEIN, SERUM 4.1 g/dL (6.4-8.2)
--- NOTE | 2021-06-22 18:20 | NUR ---
RN MS NOTES BLOOD SUGAR CHECKED BUT GLUCOMETER UNABLE TO READ STRIP PROPERLY AND PT DOES NOT WANT TO REPEAT TEST AT THIS TIME, SAID TO DO IT LATER, RECEIVED LATEST LAB RESULTS, H/H 7.09/09, NO ACTIVE BLEEDING NOTED TO NEW HD CATH AT RIGHT UPPER CHEST AND OLD HD CATH SITE AT RIGHT FEMORAL AREA, DR. POTTER INFORMED, NO NEW ORDER GIVEN, PT CURRENTLY HAVING BLE DUPLEX VENOUS SCAN, TOLERATING WELL.
--- NOTE | 2021-06-22 18:38 | NUR ---
MS CHAMPION CLOSING NOTES: PATIENT IN BED, ALERT/ORIENTED X3-4 AND NOT IN RESPIRATORY DISTRESS NOTED. BREATHING EVEN AND UNLABORED. PT. WITH PICC LINE ON THE MICHAEL WITH 3 LUMEN INTACT. PT. WITH RIGHT FEMORAL HD CATH, WAS REMOVED TODAY, NO BLEEDING NOTED ON THE SITE. PT. HAS NEW TUNNELED HD CATH INSERTION AT [facility]. NO SIGNS OF BLEEDING WITH CLEAN DRY DRESSING IN PLACED. PT. WITH INDWELLING MOHAMUD CATH(ANURIC).STILL ON NPO FOR THE PROCEDURE . PATIENT ON SAFETY PRECAUTIONS. BED ON LOWEST LOCKED POSITION. CALL LIGHT AND BEDSIDE TABLE WITHIN EASY REACH. WILL CONTINUE TO MONITOR PT. ACCDGLY Addendum: 06/22/21 at 1842 by CLARITZA NINO RN PATIENT NOT ON NPO, PATIENT ALREADY STARTED RENAL DIET AFTER THE SURGERY TODAY, TOLERATED HER MEALS.
--- NOTE | 2021-06-22 18:45 | NUR ---
RN MS NOTES PATIENT WAS BROUGHT TO MRI ACCOMPANIED BY STAFF FORM MRI DEPT. VIA BED, IN STABLE CONDITION. NO SOB NOTED AT THIS TIME. PATIENT ENDORSED ACCDGLY
[2021-06-22] MEDS: ANCEF 1 GM/50 ML D5W IV SCH (18:54)
--- NOTE | 2021-06-22 19:30 | NUR ---
MS RN NOTES NOT IN THE ROOM.PER REPORT,PATIENT WAS TAKEN TO MRI.
--- NOTE | 2021-06-22 19:45 | NUR ---
MS RN NOTES RECEIVED BACK FROM MRI,FEELING ANXIOUS,ASKING FOR ANXIETY PILL.ALERT,ORIENTED X4,NO SOB,WITH LEFT EYE DROOP NOTED,MOHAMUD CATH IN PLACE DRAINING YELLOWISH URINE OUTPUT.WITH LEFT UPPER ARM PICC LINE FOR MEDS,RIGHT UPPER CHEST TUNNELED HD CATH.RIGHT FEMORAL HD CATH REMOVED,NO BLEEDING ON SITE NOTED.WILL CONTINUE TO MONITOR STATUS.
[2021-06-22] MEDS: LORAZEPAM 1 MG TABLET PO PRN (20:21)
--- NOTE | 2021-06-22 20:21 | NUR ---
MS RN NOTES FEELIN ANXIOUS,ATIVAN 2MG PO GIVEN ORDERED.
--- NOTE | 2021-06-22 21:45 | NUR ---
MS RN NOTES ACCU-CHECK BLOOD SUGAR CHECK 135,COVERED WITH HUMULIN R 2 UNITS PER SLIDING SCALE.
[2021-06-22] MEDS: QUETIAPINE FUMARATE 25 MG TABLET PO PRN (23:29)
[2021-06-23] MEDS: TOBRAMYCIN OPHTH 5ML 5 ML BOTTLE LEFTEYE SCH ×6 (03:12→22:24)
[2021-06-23] MEDS: ANCEF 1 GM/50 ML D5W IV SCH (03:12)
--- NOTE | 2021-06-23 07:02 | NUR ---
MS RN NOTES FAIRLY RESTED,NOT IN ANY DISCOMFORTS AT THE MOMENT,ALL DUE MEDS GIVEN.CALL LIGHT IN REACH,NEEDS ATTENDED.
[2021-06-23] MEDS: BLOOD SUGAR DIAGNOSTIC 1 EACH STRIP IN SCH ×4 (07:36→22:35)
--- NOTE | 2021-06-23 07:40 | NUR ---
MS RN OPENING NOTES RECEIVED PATIENT AWAKE IN BED, ALERT AND ORIENTED X 4. NO SOB. NO S/S OF DISTRESSED NOTED. BREATHING IS EVEN AND UNLABORED. IV ACCESS MICHAEL PICC PATENT AND INTACT. MOHAMUD CATHETER PATENT, INTACT AND DRAINING WELL. SAFETY MEASURES IN PLACE WITH BED LOCKED AT LOWEST POSITION AND SIDE RAILS UP X 2. CALL LIGHT WITHIN REACH. WILL CONTINUE TO MONITOR THROUGHOUT SHIFT.
[2021-06-23 08:00] VITALS: BP 145/91
[2021-06-23] MEDS: CIPROFLOXACIN HCL 0.3% 5 ML BOTTLE LEFTEYE SCH (08:58)
[2021-06-23] MEDS: ESCITALOPRAM OXALATE (10 MG) 10 MG TABLET PO SCH (08:58)
[2021-06-23] MEDS: LANOLIN/MIN OIL/PETROLAT,WHT 3.5 GM TUBE EACHEYE SCH ×2 (08:58→17:00)
[2021-06-23 12:39] LABS: BASOPHILS # (AUTO) 0.1 K/uL (0.0-0.2); BASOPHILS % (AUTO) 0.6 % (0.0-2.0); EOSINOPHILS % (AUTO) 1.5 % (0.0-6.0); HEMATOCRIT 23 % (33-45); HEMOGLOBIN 7.6 g/dL (11.5-14.8); LYMPHOCYTES # (AUTO) 1.5 K/uL (0.8-4.8); LYMPHOCYTES % (AUTO) 10.2 % (20.0-44.0); MEAN CORPUSCULAR HGB CONC 33 g/dl (31.0-36.0); MEAN CORPUSCULAR VOLUME 90 fL (82-100); MONOCYTES # (AUTO) 0.8 K/uL (0.1-1.30); MONOCYTES % (AUTO) 5.8 % (2.0-12.0); NEUTROPHILS # (AUTO) 11.9 K/uL (1.8-8.9); NEUTROPHILS % (AUTO) 81.9 % (43.0-81.0); PLATELET COUNT (AUTO) 277 K/uL (150-450); RED BLOOD CELL COUNT(AUTO) 2.54 MIL/uL (4.0-5.2); WHITE BLOOD COUNT (AUTO) 14.5 K/uL (4.3-11.0)
[2021-06-23 12:54] LABS: CALCIUM, SERUM 7.5 mg/dL (8.5-10.1); MAGNESIUM 2.2 mg/dL (1.8-2.4); PHOSPHORUS 4.8 mg/dL (2.5-4.9); POTASSIUM 3.4 mmol/L (3.5-5.1)
[2021-06-23] MEDS: LORAZEPAM INJ 2 MG/ML VIAL IV PRN (14:59)
[2021-06-23] MEDS: METHADONE HCL 10 MG TABLET PO SCH ×2 (15:19→17:11)
[2021-06-23] MEDS: GABAPENTIN 300 MG CAPSULE PO SCH ×2 (15:20→17:11)
[2021-06-23 16:00] VITALS: BP 119/83
--- NOTE | 2021-06-23 18:52 | NUR ---
MS RN CLOSING NOTES PATIENT IS AWAKE IN BED. NO SOB. NO S/S OF DISTRESSED NOTED. BREATHING IS EVEN AND UNLABORED. IV ACCESS MICHAEL PICC PATENT AND INTACT. MOHAMUD CATHETER PATENT, INTACT AND DRAINING WELL WITH YELLOW CLEAR URINE. S/P HD TODAY WITH 3L REMOVED. SAFETY MEASURES MAINTAINED. CALL LIGHT WITHIN REACH. WILL ENDORSE CONTINUITY OF CARE TO ONCOMING SHIFT.
[2021-06-23] MEDS ORDERED: EPOETIN ALFA-EPBX 10,000 UNIT/ML VIAL SQ SCH (19:00)
[2021-06-23 20:00] VITALS: BP 126/74
--- NOTE | 2021-06-23 20:00 | NUR ---
MS RN OPENING NOTES Patient is awake, A&Ox4. States there is pain to her legs pins and needles like but pain medication is currently helping a lot. legs elevated in bed for swelling. PICC line flushed and patent. HD catheter R chest intact. On bedrest, reposition q2h. Is calm and cooperative at this time. Will continue to monitor.
[2021-06-23] MEDS: MORPHINE SULFATE INJ 2 MG/ML DISP.SYRIN IV PRN (22:36)
[2021-06-23] MEDS: QUETIAPINE FUMARATE 25 MG TABLET PO PRN (23:44)
[2021-06-24] MEDS: MORPHINE SULFATE INJ 2 MG/ML DISP.SYRIN IV PRN ×2 (02:41→06:53)
[2021-06-24] MEDS: TOBRAMYCIN OPHTH 5ML 5 ML BOTTLE LEFTEYE SCH ×4 (02:42→16:30)
[2021-06-24 06:50] LABS: BASOPHILS # (AUTO) 0.1 K/uL (0.0-0.2); BASOPHILS % (AUTO) 0.4 % (0.0-2.0); EOSINOPHILS % (AUTO) 1.7 % (0.0-6.0); HEMATOCRIT 22 % (33-45); HEMOGLOBIN 7.7 g/dL (11.5-14.8); LYMPHOCYTES # (AUTO) 2.1 K/uL (0.8-4.8); LYMPHOCYTES % (AUTO) 14.9 % (20.0-44.0); MEAN CORPUSCULAR HGB CONC 36 g/dl (31.0-36.0); MEAN CORPUSCULAR VOLUME 90 fL (82-100); MONOCYTES % (AUTO) 7.1 % (2.0-12.0); NEUTROPHILS # (AUTO) 10.5 K/uL (1.8-8.9); NEUTROPHILS % (AUTO) 75.9 % (43.0-81.0); PLATELET COUNT (AUTO) 286 K/uL (150-450); RED BLOOD CELL COUNT(AUTO) 2.39 MIL/uL (4.0-5.2); WHITE BLOOD COUNT (AUTO) 13.8 K/uL (4.3-11.0)
[2021-06-24] MEDS: BLOOD SUGAR DIAGNOSTIC 1 EACH STRIP IN SCH ×2 (06:54→11:51)
--- NOTE | 2021-06-24 07:00 | NUR ---
Patient A&Ox4. VSS. overnight stable. Only c/o was of pain relieved by PRN [place]. Patient also requested prn seroquel for sleep which was effective. Patient compliant with fluid restriction and renal diet. Pt. refused am BS, saying "you already took too much blood from blood draw."
[2021-06-24 07:26] LABS: CALCIUM, SERUM 7.3 mg/dL (8.5-10.1); CREATININE 6.8 mg/dL (0.6-1.3); POTASSIUM 3.7 mmol/L (3.5-5.1)
--- NOTE | 2021-06-24 07:27 | NUR ---
MS RN OPENING NOTES RECEIVED PATIENT AWAKE IN BED, ALERT AND ORIENTED X 3-4. NO SOB. NO S/S OF DISTRESSED NOTED. BREATHING IS EVEN AND UNLABORED. IV ACCESS MICHAEL PICC LINE PATENT AND INTACT. MOHAMUD CATHETER PATENT AND DRAINING WELL.PT WITH TUNNELED HD CATH AT [facility], NO BLEEDING NOTED WITH DRY DRESSING IN PLACED. SAFETY MEASURES IN PLACE WITH BED LOCKED AT LOWEST POSITION AND SIDE RAILS UP X 2. CALL LIGHT WITHIN REACH. WILL CONTINUE TO MONITOR THROUGHOUT SHIFT.
[2021-06-24 08:19] VITALS: BP 129/74
[2021-06-24] MEDS: GABAPENTIN 300 MG CAPSULE PO SCH (08:24)
[2021-06-24] MEDS: METHADONE HCL 10 MG TABLET PO SCH (08:24)
[2021-06-24] MEDS: ESCITALOPRAM OXALATE (10 MG) 10 MG TABLET PO SCH ×3 (08:24→08:56)
[2021-06-24] MEDS: LANOLIN/MIN OIL/PETROLAT,WHT 3.5 GM TUBE EACHEYE SCH (08:25)
[2021-06-24] MEDS: LORAZEPAM 1 MG TABLET PO PRN (10:50)
--- NOTE | 2021-06-24 10:50 | NUR ---
RN NOTES PATIENT COMPLAINS OF ANXIETY, OBSERCED PT. ANXIOUS AND UNEASY AND WAS REQUESTING IF SHE CAN TAKE ATIVAN. PRN ATIAVN 2 MG TAB. GIVEN PRN DOSE
[2021-06-24] MEDS ORDERED: Quetiapine Fumarate PO (11:44)
[2021-06-24] MEDS ORDERED: ESCI10TA PO (11:44)
[2021-06-24] MEDS ORDERED: INSU100V28 SQ (11:44)
[2021-06-24] MEDS ORDERED: TOBR5DRO7 LEFTEYE (11:44)
[2021-06-24] MEDS ORDERED: EPOE1000 SQ (11:44)
[2021-06-24] MEDS ORDERED: GABA300C PO (11:44)
[2021-06-24] MEDS ORDERED: LORA-259 PO (11:44)
[2021-06-24] MEDS ORDERED: METH10TA2 PO (11:44)
--- NOTE | 2021-06-24 12:13 | NUR ---
RN NOTES PATIENT REFUSED TO TAKE LEXAPRO MEDS. THIS AM. PILL WAS ALREADY OPENED
[2021-06-24] MEDS ORDERED: METOCLOPRAMIDE HCL 10 MG/2 ML VIAL IV SCH (14:00)
[2021-06-24 16:12] VITALS: BP 140/95
--- NOTE | 2021-06-24 16:45 | NUR ---
RUSH SEATER NOTES PT. DISCHARGE TO [facility] IN STABLE CONDITION. AWAKE, ALERT AND NON- VERBAL. ON ROOM AIR, RYAN. WELL WITH NO S/SX OF DISTRESS NOTED. NO C/O PAIN OR DISCOMFORT NOTED AT THIS TIME. V/S TAKEN AND RECORDED PHOTOS OF FOREHEAD, BACK OF RIGHT KNEE, GROINS, BUTTOCK WAS TAKEN AND FILED IN HER CHART. BELONGINGS ACCOUNTED FOR. PICC LINE ON MICHAEL REMOVED WITH NO ACTIVE BLEEDING NOTED, DRY PRESSURE DRESSING APPLIED AT SITE. MOHAMUD CATHETER WAS REMOVED. PT. WITH TUNNELED HD CATH AT [facility], NO BLEEDING. REPORT GIVEN EARLIER TO ROSALIE CHAMPION. PT. LEFT UNIT AT 1650 VIA GURNEY ACCOMPANIED BY 2 EMT'S. CHARGE NURSE AWARE OF DISCHARGE
== END 2021-06-24 17:11 | DRG 917 ==
LOC: ER 22:33 → ICU 06-08 01:33 → MED 06-14 19:58
PROVIDERS: ADMIT Nurse Practitioner Acute Care; ATTEND Registered Nurse
PROC: 5A1945Z Respiratory Ventilation, 24-96 Consecutive Hours (ICD-10-PCS; principal; 2021-06-08)
PROC: 0BH18EZ Insertion of Endotracheal Airway into Trachea, Via Natural or Artificial Opening Endoscopic (ICD-10-PCS; 2021-06-08)
PROC: 02HV33Z Insertion of Infusion Device into Superior Vena Cava, Percutaneous Approach (ICD-10-PCS; 2021-06-08)
PROC: B548ZZA Ultrasonography of Superior Vena Cava, Guidance (ICD-10-PCS; 2021-06-08)
PROC: 5A1D70Z Performance of Urinary Filtration, Intermittent, Less than 6 Hours Per Day (ICD-10-PCS; 2021-06-12)
PROC: 06HY33Z Insertion of Infusion Device into Lower Vein, Percutaneous Approach (ICD-10-PCS; 2021-06-12)
PROC: 30233N1 Transfusion of Nonautologous Red Blood Cells into Peripheral Vein, Percutaneous Approach (ICD-10-PCS; 2021-06-18)
PROC: 0JHD3XZ Insertion of Tunneled Vascular Access Device into Right Upper Arm Subcutaneous Tissue and Fascia, Percutaneous Approach (ICD-10-PCS; 2021-06-22)
PROC: 05HM33Z Insertion of Infusion Device into Right Internal Jugular Vein, Percutaneous Approach (ICD-10-PCS; 2021-06-22)
PROC: B543ZZA Ultrasonography of Right Jugular Veins, Guidance (ICD-10-PCS; 2021-06-22)
DX: T42.4X2A Poisoning by benzodiazepines, intentional self-harm, initial encounter (principal); G92.8 Other toxic encephalopathy; J69.0 Pneumonitis due to inhalation of food and vomit; N17.0 Acute kidney failure with tubular necrosis; K72.00 Acute and subacute hepatic failure without coma; E43 Unspecified severe protein-calorie malnutrition; A41.9 Sepsis, unspecified organism; J96.01 Acute respiratory failure with hypoxia; J15.9 Unspecified bacterial pneumonia; E87.1 Hypo-osmolality and hyponatremia; E87.2 Acidosis; M62.82 Rhabdomyolysis; F11.20 Opioid dependence, uncomplicated; J98.11 Atelectasis; F33.2 Major depressive disorder, recurrent severe without psychotic features; E72.20 Disorder of urea cycle metabolism, unspecified; R45.851 Suicidal ideations; T40.412A Poisoning by fentanyl or fentanyl analogs, intentional self-harm, initial encounter; Y92.009 Unspecified place in unspecified non-institutional (private) residence as the place of occurrence of the external cause; Z20.822 Contact with and (suspected) exposure to COVID-19; E03.9 Hypothyroidism, unspecified; F41.9 Anxiety disorder, unspecified; D69.6 Thrombocytopenia, unspecified; E87.5 Hyperkalemia; E83.51 Hypocalcemia; E87.70 Fluid overload, unspecified; G89.4 Chronic pain syndrome; I10 Essential (primary) hypertension; E87.6 Hypokalemia; H05.222 Edema of left orbit; W19.XXXA Unspecified fall, initial encounter; Y92.9 Unspecified place or not applicable; K76.9 Liver disease, unspecified; H02.402 Unspecified ptosis of left eyelid; Z99.2 Dependence on renal dialysis
CPT/HCPCS: 31720; 36415; 36600; 70450-TC; 70486-TC; 70544-TC; 70551-TC; 71045-TC; 71250-TC; 76770-TC; 80048-TC; 80053-TC; 80061-TC; 80074; 80076-TC; 80202-TC; 81001; 82140-TC; 82272-TC; 82550-TC; 82553; 82803-TC; 82962-TC; 83605-TC; 83735-TC; 84100-TC; 84478-TC; 84703-TC; 85025-TC; 85027-TC; 85610-TC; 85730-TC; 86225; 86235; 86706; 86850-TC; 87040-TC; 87081-TC; 87086-TC; 87340; 87806; 90935-TC; 93926-TC; 93970-TC; 93971-TC; 94002-TC; 94003-TC; 94760-TC; 97110-TC; 97112-TC; 97116-TC; 97530-TC; A4216; A6253; C1750; C1757; C1769; C1894; C9803; G0378; G0480; J0132; J0610; J0690; J0885; J1100; J1644; J1815; J2060; J2185; J2250; J2270; J2310; J2405; J2543; J3010; J3370; J3480; J3490; J7030; J7040; J7042; J7050; J7060; J7070; P9016; P9047; Q9966